=== PATIENT | male | born 1960 | race Caucasian/White ===

== ENCOUNTER 2017-02-10 16:56 | Inpatient (IN) | payer BC ==
[~2017-02-10] VITALS: Ht 190.5 cm; Wt 110.9 kg
[2017-02-10] MEDS ORDERED: METH54TA PO (17:24)
[2017-02-10] MEDS ORDERED: OLAN1CAP PO (17:26)
--- NOTE | 2017-02-10 18:48 | NUR ---
STATUS PT REPORTS X3 EMESIS IN PAST 24 HOURS AND 1 DIARRHEA STOOL. PT STATES "I ACTUALLY FELT A LOT BETTER ONCE I THREW UP." PT STATES THAT HE CONTINUES WITH NAUSEA.
--- NOTE | 2017-02-10 19:18 | ERPDOC ---
Departure Disposition Decision Date: Feb 10, 2017 Disposition Decision Time: 22:30 Disposition: 02 TO [facility] [place] [facility] Impression Impression Impression: Primary Impression: Acute pancreatitis Pancreatitis type: unspecified pancreatitis type Acute pancreatitis complication: unspecified Qualified Codes: K85.90 - Acute pancreatitis without necrosis or infection, unspecified Additional Impression: Neutrophilic leukocytosis Severity: Moderate Condition: Stable Seen By: Physician only Problems/Meds/Labs Reviewed?: Yes Medications reviewed and manag: Yes Follow up care ordered?: Yes Mental Status: Alert, Oriented HPI - Abdominal Pain General Chief Complaint: Nausea,Vomiting,Diarrhea Stated Complaint: N/V, RINGING IN EARS, HOT FLASHES Time Seen by Provider: 19:17 Source: patient History/Exam Limitations: no limitations HPI - Abdominal Pain Initial Comments Patient is a 56-year-old male presents emergency room for evaluation of nausea and vomiting, ringing in his ears, lashes/chills. Patient states that he is trying to get off of his antidepressant medications so he took some over-the- counter amino acids, approximately 45 minutes after taking the amino acids he started having some epigastric and upper abdominal pain with associated intractable nausea and vomiting with dry heaving is also had ringing in his ears , decided to come to the ER for evaluation Occurred At: home Onset: Rapid Duration: 1 hr Quality: sharpness Location: LLQ, epigastric Allergies: Coded Allergies: No Known Allergies (Unverified , 02/10/17) Past History Past Medical History Metabolic: hypothyroidism ENMT: sleep apnea Male: kidney stones Psychological: anxiety, depression Surgical History General: hernia (hiatalfundoplication), tonsils Social History Smoking Status: Never smoker Substance Use Type: does not use Alcohol Intake: other (couple beers every other day) Review of Systems Constitutional Constitutional: chills, DENIES: appetite decrease, dizziness, fever, weakness Eyes Vision: DENIES: double vision, loss of visual henriquez ENMT Sinuses: DENIES: congestion, rhinorrhea Cardiovascular Cardiac: DENIES: chest pain, dyspnea on exertion Pulmonary Respiratory: DENIES: cough, dyspnea, sputum, tachypnea GI Upper Abdomen: nausea, pain, vomiting Lower Abdomen: DENIES: constipation, diarrhea, pain General: DENIES: frequency, urgency Musculoskeletal General: DENIES: cramps, pain, weakness Integumentary Skin: DENIES: color change, itching, rash Endocrine Endocrine: DENIES: heat/cold intolerance Hematologic/Lymphatic Hematologic/Lymphatic: DENIES: anemia Physical Exam General General Nourishment: well nourished, well developed General Body Habitus: well groomed Vitals and Pain First Documented Vital Signs Date Time Temp Pulse Resp B/P Pulse Ox O2 Delivery O2 Flow Rate FiO2 02/10/17 17:16 98.0 82 132/87 97 Room Air 02/10/17 18:41 74 Weight: Kilograms: 115.000 Height (feet): 6 Height (inches): 3.00 Triage Pain Scale: RN VS reviewed by Provider: Yes Eyes (brief) Eyes Brief: found: EOMI, PERRL ENMT (brief) ENMT Brief: FOUND: mucosa moist, normal dentition, NOT FOUND: nasal erythema, pharnyx erythema, tonsillar deviation Neck (brief) Neck: NOT FOUND: adenopathy, spasm, tenderness Respiratory (brief) Respiratory: FOUND: clear all henriquez, equal bilaterally, NOT FOUND: rales, wheezes Cardiovascular (brief) Cardiac: FOUND: regular rate, regular rhythm Capillary Refill: <2 sec Abdomen (brief) Abdominal Brief: FOUND: bowel normo active x4, soft, tender (mild epigastric left upper quadrant tenderness no right upper quadrant tenderness or Gonzalez's) Lymphatic (brief) Lymphatic Brief: NOT FOUND: adenopathy Musculoskeletal (brief) Musculoskeletal Brief: NOT FOUND: spasm, tenderness Integumentary (brief) Integumentary Brief: FOUND: dry, pink, warm, NOT FOUND: rash Neurologic (brief) Neurological Brief: FOUND: CN w/o gross def to obs, motor-no gross deficits, sensory-no gross deficits Psychiatric (brief) Psychiatric Brief: FOUND: alert, oriented Differential Diagnoses Considering: Appendicitis, Biliary Colic, Cholecystitis, Dehydration, Diverticulitis, Food Poisoning, Gastroenteritis, Gastroparesis, Hyponatremia, Hypokalemia, Hypoglycemia, Pancreatitis, Pneumonia, Pyelonephritis, UTI, Sigmoid Volvulus, Cecal Volvulus Progress Results/Orders Orders Procedure Category Date Status Time Iv Lock (Ed Only) EDM 02/10/17 Transmitted 19:28 Cbc W/Auto LAB 02/10/17 Complete Diff-Reflex Manual 19:28 Cmp - Comprehensive LAB 02/10/17 Complete Metabolic 19:28 Lipase LAB 02/10/17 Complete 19:28 Troponin I W LAB 02/10/17 Complete Hemolysis Index 19:28 Normal Saline (Normal PHA 02/10/17 Complete Saline Iv) 19:30 Ondansetron Inj PHA 02/10/17 Complete (Zofran) 19:30 Ketorolac (Toradol) PHA 02/10/17 Complete 19:30 UA, LAB 02/10/17 Complete Dip&Micro(Complete) & 19:46 Ct Abd/Pelvis CT 02/10/17 Taken W/Contrast Only 20:50 Iohexol (Omnipaque) PHA 02/10/17 Complete 20:54 Normal Saline (Ns) PHA 02/10/17 Complete 20:54 Saline Flush (Iv PHA 02/10/17 Complete Flush) 20:55 Blood Culture ALFREDA 02/10/17 In Process 22:15 Piperacillin/Tazobactam PHA 02/10/17 Complete (Zosyn) 22:15 Lab Results Laboratory Tests Test 02/10/17 19:46 White Blood Count 17.7T/MM3 Red Blood Count 5.76M/MM3 Hemoglobin 18.0GM/DL Hematocrit 52.3% Mean Corpuscular Volume 90.8UM3 Mean Corpuscular Hemoglobin 31.3UUG Mean Corpuscular Hemoglobin Concent 34.4GM/DL RDW Standard Deviation 46.9FL Platelet Count 271T/MM3 Mean Platelet Volume 10.6UM3 Immature Granulocyte % (Auto) % Neutrophils (%) (Auto) % Lymphocytes (%) (Auto) % Monocytes (%) (Auto) % Eosinophils (%) (Auto) % Basophils (%) (Auto) % Absolute Immature Granulocyte (auto T/MM3 Absolute Neutrophils (auto) T/MM3 Absolute Lymphocytes (auto) T/MM3 Absolute Monocytes (auto) T/MM3 Absolute Eosinophils (auto) T/MM3 Absolute Basophils (auto) T/MM3 Neutrophils % (Manual) 93.0% Lymphocytes % (Manual) 4.0% Monocytes % (Manual) 2.0% Basophils % (Manual) 1.0% Absolute Neutrophils (Manual) 16.5T/MM3 Lymphocytes # (Manual) 0.7T/MM3 Monocytes # (Manual) 0.4T/MM3 Basophils # (Manual) 0.2T/MM3 Red Cell Morphology Comment Normal Urine Collection Type Voided-not cc-midstr Urine Color Yellow Urine Turbidity Clear Urine pH 6.5 Urine Specific [place] 1.020 Urine Protein Trace Urine Glucose (UA) Negative Urine Ketones 1+ Urine Blood 1+ Urine Nitrite Negative Urine Bilirubin 2+ Urine Urobilinogen 0.2EU/DL Urine Leukocyte Esterase Negative Urine RBC 1-3/HPF Urine WBC 1-3/HPF Urine Squamous Epithelial Cells 0-5 Urine Bacteria Trace Urine Mucus Present Urine Culture Indicated Cult not indicated Turbidity < 20 Sodium Level 144MEQ/L Potassium Level 4.4MEQ/L Chloride Level 108MEQ/L Carbon Dioxide Level 22MEQ/L Anion Gap 14MEQ/L Blood Urea Nitrogen 10.0MG/DL Creatinine 1.0MG/DL Glomerular Filtration Rate Calc 77 BUN/Creatinine Ratio 10RATIO Glucose Level 103MG/DL Calculated Osmolality 276MOSM/KG Calcium Level 9.5MG/DL Total Bilirubin 0.80MG/DL Icterus Index < 2 Aspartate Amino Transf (AST/SGOT) 33U/L Alanine Aminotransferase (ALT/SGPT) 43U/L Alkaline Phosphatase 109U/L Troponin I < 0.012ng/ml Total Protein 8.6G/DL Albumin 4.5G/DL Globulin 4.1G/DL Albumin/Globulin Ratio 1.1RATIO Lipase 1523U/L Chemistry Specimen Hemolysis < 15 Medications Current ED Medications Sodium Chloride (Normal Saline IV) 1,000 ml @ 999 mls/hr Q1H1M ONCE IV Last administered on 02/10/17 19:55; Start 02/10/17 at 19:30; Stop 02/10/17 at 20:30 ; Status DC Ondansetron HCl (Zofran) 4 mg O ONCE IV Last administered on 02/10/17 19:57; Start 02/10/17 at 19:30; Stop 02/10/17 at 19:31; Status DC Ketorolac Tromethamine (Toradol) 30 mg O ONCE IV Last administered on 20:00; Start 02/10/17 at 19:30; Stop 02/10/17 at 19:31; Status DC Iohexol 1 bottle 1 bottle STK-MED ONCE .ROUTE ; Start 02/10/17 at 20:54; Stop at 20:55; Status DC Sodium Chloride (NS) 100 ml @ As Directed STK-MED ONCE .ROUTE ; Start 02/10/17 at 20:54; Stop 02/10/17 at 20:55; Status DC Sodium Chloride 10 ml 10 ml STK-MED ONCE .ROUTE ; Start 02/10/17 at 20:55; Stop 02/10/17 at 20:56; Status DC Piperacillin Sod/ Tazobactam Sod 3.375 g/Sodium Chloride 100 ml @ 200 mls/hr O ONCE IV Last administered on 02/10/17 22:44; Start 02/10/17 at 22:15; Stop 02/10/17 at 22:44; Status DC Sodium Chloride (Normal Saline IV) 1,000 ml @ 125 mls/hr Q8H IV Last administered on 02/10/17 23:37; Start 02/10/17 at 22:26; Status UNV Progress Progress Patient with leukocytosis and bandemia we'll order a CT scan. CT scan of abdomen is noncontributory, patient has a lipase of 1583. Discuss case with Dr. Mckeon, hospitalist service he will admit him inpatient status, due to the leukocytosis and bandemia he would request blood culture start Zosyn CT CT : CT: Abd/Pelvis IV contrast Interpretation: Normal, Faxed Report PRANEETH CORREA MD Feb 10, 2017 19:18
[2017-02-10] MEDS ORDERED: ONDANSETRON 4mg/2ml INJECTION IV ONE (19:30)
[2017-02-10] MEDS ORDERED: KETOROLAC 30mg/ml INJECTION IV ONE (19:30)
[2017-02-10] MEDS ORDERED: NORMAL SALINE 1,000 ML IV ONE (19:30)
[2017-02-10 20:08] LABS: HCT - HEMATOCRIT 52.3 % (41-53); MEAN CORPUSCULAR HGB 31.3 UUG (26-34); MEAN CORPUSCULAR HGB CONC(MCHC 34.4 GM/DL (31-37); MEAN CORPUSCULAR VOLUME 90.8 UM3 (80-100); MEAN PLATELET VOLUME 10.6 UM3 (9.4-12.4); RED BLOOD COUNT 5.76 M/MM3 (4.50-5.90); WBC - WHITE BLOOD COUNT 17.7 T/MM3 (4.5-11.0)
[2017-02-10 20:12] LABS: BLOOD, URINE 1+ (NEGATIVE); COLOR,URINE YELLOW (YELLOW); LEUKOCYTE ESTERASE ,URINE NEGATIVE (NEGATIVE); NITRITE,URINE NEGATIVE (NEGATIVE); UROBILINOGEN,URINE 0.2 EU/DL (NORMAL)
[2017-02-10 20:17] LABS: ALBUMIN 4.5 G/DL (3.5-5.0); ALBUMIN/GLOBULIN RATIO 1.1 RATIO (1.1-2.2); ALKALINE PHOSPHATASE 109 U/L (38-126); ALT (SGPT) 43 U/L (21-72); ANION GAP 14 MEQ/L (5-15); AST (SGOT) 33 U/L (17-59); BUN/CREATININE RATIO 10 RATIO (6-26); CALCIUM 9.5 MG/DL (8.4-10.2); CHLORIDE 108 MEQ/L (98-107); CO2 - CARBON DIOXIDE 22 MEQ/L (22-30); GLOMERULAR FILTRATION RATE 77; GLUCOSE 103 MG/DL (75-110); LIPASE 1523 U/L (23-300); POTASSIUM 4.4 MEQ/L (3.6-5); SODIUM 144 MEQ/L (134-144); TOTAL PROTEIN 8.6 G/DL (6.3-8.2)
[2017-02-10 20:21] LABS: BACTERIA,URINE TRACE (NEGATIVE); MUCUS,URINE PRESENT; SQUAMOUS EPITHELIAL CELL,UR 0-5
[2017-02-10 20:25] LABS: BASOPHILS # (MANUAL) 0.2 T/MM3 (0-0.2); LYMPHOCYTES # (MANUAL) 0.7 T/MM3 (1-4.8); MONOCYTES # (MANUAL) 0.4 T/MM3 (0-0.8); NEUTROPHILS #(MANUAL)-ABSOLUTE 16.5 T/MM3 (1.8-7.7); TOTAL CELLS COUNTED 100 %
[2017-02-10] MEDS ORDERED: IOHEXOL 300 MG/ML 100ml INJECTION ONE (20:54)
[2017-02-10] MEDS ORDERED: NORMAL SALINE 100 ML ONE (20:54)
[2017-02-10] MEDS ORDERED: SALINE FLUSH 10ml SYRINGE ONE (20:55)
--- NOTE | 2017-02-10 20:55 | NUR ---
CT PT TO CT VIA [facility].
[2017-02-10] MEDS ORDERED: RIZA10TA26 PO (21:03)
[2017-02-10] MEDS ORDERED: CYCL-375 PO (21:03)
[2017-02-10] MEDS ORDERED: IBUP-1547 PO (21:03)
[2017-02-10] MEDS ORDERED: ASPI1TAB7 PO (21:03)
[2017-02-10] MEDS ORDERED: HYDR-3989 PO (21:03)
[2017-02-10] MEDS ORDERED: DRON10CA2 PO (21:03)
[2017-02-10] MEDS ORDERED: TRAM50TA4 PO (21:03)
[2017-02-10] MEDS ORDERED: TYRO500C2 PO (21:04)
[2017-02-10] MEDS ORDERED: OXIT5POW PO (21:06)
--- NOTE | 2017-02-10 21:10 | NUR ---
CT PT RETURNED.
[2017-02-10] MEDS ORDERED: PIPERACILLIN/TAZOBACTAM 3.375 G in NORMAL SALINE 100 ML IV ONE (22:15)
--- NOTE | 2017-02-10 22:16 | NUR ---
LAB NOTIFIED OF NEED FOR BLOOD CX DRAW.
--- NOTE | 2017-02-10 22:16 | NUR ---
DR DR CORREA AT BEDSIDE.
--- NOTE | 2017-02-10 22:18 | HPPDOC ---
CARLOS A BEDOLLA MD 02/10/17 2213: HPI - Adult Date DATE: 02/10/17 TIME: 22:07 General History of Present Illness This is a 56y/o male with history of anxiety, depression, back pain, GERD and migraine HAs who presents to ER at [facility] [place] w/ chief concern of n/v/d & abdominal pain x past 12-24 hours and some malaise. Patient reports mild abdominal tenderness in LUQ which has improved with morphine IV Patient apparently took some OTC L-Tyrosine and OTC 5HTP(hydroxytryptophan) approximately one hour prior to the onset of symptoms. He states that he had run out of his Symbiax yesterday and read online that he could take these two OTC supplements in lieu of the Symbiax. He also reports that he drinks approximately 3 beers every day and has so recently, however states prior to that it was more like 2 beers every other day. He denies drinking anything other than beer and states 3 is the most he will drink in one day d/t EtOH triggering his migraines if he drinks more than that. He also takes Excedrin Migraine BID and recently took 800mg ibuprofen TID for back pain (he stopped the ibuprofen about a week ago). Patient reported having some sweats and feeling "hot" today. Patient denies cough, shortness of breath, dyspnea and denies dysphagia, hematemesis and did have a "mild migraine" JALLOH. Patient denies fevers. In ER his lipase was noted to be 1581 and he had a WBC of 17.7 w/ 93% Neutrophils; CT scan of abdomen and pelvis was per prelim report negative. O2 Sats 96% on RA and otherwise Vital signs reported as "stable" in ER. Patient to be admitted to the Hospitalist service for further evaluation and management. Patient currently is feeling better after MSO4. Denies abdominal pain and n/v at this time. Patient's PCP in [place], [place] Past Medical History Past Medical History Migraine HAs - takes Excedrin BID on most days Depression & Anxiety ADD GERD s/p fundoplication about 10 years ago BAck pain HLD - controlling w/ diet and exercise Current Medications Home Meds Reported Medications Oxitriptan (Hydroxytryptophan) 5 Gm Powder, 5 TAB PO O 02/10/17 Tyrosine (l-Tyrosine) 500 Mg Capsule, 500 MG PO DAILY 02/10/17 Aspirin/Acetaminophen/Caffeine (Excedrin Migraine Caplet) 1 Each Tablet, 1 TAB PO Q6H Y for PAIN 02/10/17 Ibuprofen (Ibuprofen) 800 Mg Tablet, 800 MG PO TID Y for PAIN 02/10/17 Hydrocodone/Apap ([place] 5-325 Tablet) 5-325 Tablet, 1 TAB PO Q8H Y for PAIN 02/10/17 Rizatriptan Benzoate (Rizatriptan) 10 Mg Tablet, 10 MG PO PRN Y for migraines 02/10/17 Tramadol HCl (Tramadol HCl) 50 Mg Tablet, 50 MG PO Q4HR Y for PAIN 02/10/17 Dronabinol (Dronabinol) 10 Mg Capsule, 10 MG PO DAILY 02/10/17 Cyclobenzaprine HCl (Cyclobenzaprine HCl) 10 Mg Tablet, 10 MG PO BID 02/10/17 Olanzapine/Fluoxetine HCl (Symbyax 12-50 mg Capsule) 1 Each Capsule, 1 TAB PO DAILY 02/10/17 Methylphenidate HCl (Concerta) 54 Mg Tab.er.24, 1 TAB PO DAILY 02/10/17 Allergies: Coded Allergies: No Known Allergies (Unverified , 02/10/17) Family History Family History: Brother w/ Celiac disease r/t [place]/CAD Social History Alcohol Intake: daily Current Occupational Status: employed Review of Systems All Other Systems All Other Systems: Reviewed (remainder of 10-point ROS Neg.) Physical Exam General General Nourishment: well nourished, well developed General Body Habitus: well groomed Vital Signs Vital Signs Date Time Temp Pulse Resp B/P Pulse Ox O2 Delivery O2 Flow Rate FiO2 02/10/17 21:14 89 16 149/80 96 Room Air 02/10/17 18:41 97.5 Height (Feet): 6 Height (Inches): 3.00 Telemetry Rhythm: Sinus Rhythm Eyes Brief: FOUND: EOMI, PERRL, NOT FOUND: scleral icterus Neck Brief: NOT FOUND: JVD, adenopathy, carotid bruits, nuchal rigidity Respiratory Brief: FOUND: clear all henriquez, equal bilaterally, symmetrical, NOT FOUND: rales, wheezes Cardiovascular (brief) Cardiac Brief: FOUND: regular rate, regular rhythm, NOT FOUND: pedal edema Abdomen (brief) Abdominal Brief: FOUND: BS normo active x4, soft, NOT FOUND: distended, tender Integumentary (brief) Integumentary Brief: FOUND: dry, pink, warm Neurologic (brief) Neurological Brief: FOUND: cranial 2-12 intact Neurologic RN Documented GCS Eye Opening: Verbal: Motor: Total: Psychiatric (brief) FOUND: alert, normal affect, oriented Laboratory Laboratory Tests Test 02/10/17 19:46 White Blood Count 17.7T/MM3 Red Blood Count 5.76M/MM3 Hemoglobin 18.0GM/DL Hematocrit 52.3% Mean Corpuscular Volume 90.8UM3 Mean Corpuscular Hemoglobin 31.3UUG Mean Corpuscular Hemoglobin Concent 34.4GM/DL RDW Standard Deviation 46.9FL Platelet Count 271T/MM3 Mean Platelet Volume 10.6UM3 Immature Granulocyte % (Auto) % Neutrophils (%) (Auto) % Lymphocytes (%) (Auto) % Monocytes (%) (Auto) % Eosinophils (%) (Auto) % Basophils (%) (Auto) % Absolute Immature Granulocyte (auto T/MM3 Absolute Neutrophils (auto) T/MM3 Absolute Lymphocytes (auto) T/MM3 Absolute Monocytes (auto) T/MM3 Absolute Eosinophils (auto) T/MM3 Absolute Basophils (auto) T/MM3 Neutrophils % (Manual) 93.0% Lymphocytes % (Manual) 4.0% Monocytes % (Manual) 2.0% Basophils % (Manual) 1.0% Absolute Neutrophils (Manual) 16.5T/MM3 Lymphocytes # (Manual) 0.7T/MM3 Monocytes # (Manual) 0.4T/MM3 Basophils # (Manual) 0.2T/MM3 Red Cell Morphology Comment Normal Urine Collection Type Voided-not cc-midstr Urine Color Yellow Urine Turbidity Clear Urine pH 6.5 Urine Specific [place] 1.020 Urine Protein Trace Urine Glucose (UA) Negative Urine Ketones 1+ Urine Blood 1+ Urine Nitrite Negative Urine Bilirubin 2+ Urine Urobilinogen 0.2EU/DL Urine Leukocyte Esterase Negative Urine RBC 1-3/HPF Urine WBC 1-3/HPF Urine Squamous Epithelial Cells 0-5 Urine Bacteria Trace Urine Mucus Present Urine Culture Indicated Cult not indicated Turbidity < 20 Sodium Level 144MEQ/L Potassium Level 4.4MEQ/L Chloride Level 108MEQ/L Carbon Dioxide Level 22MEQ/L Anion Gap 14MEQ/L Blood Urea Nitrogen 10.0MG/DL Creatinine 1.0MG/DL Glomerular Filtration Rate Calc 77 BUN/Creatinine Ratio 10RATIO Glucose Level 103MG/DL Calculated Osmolality 276MOSM/KG Calcium Level 9.5MG/DL Total Bilirubin 0.80MG/DL Icterus Index < 2 Aspartate Amino Transf (AST/SGOT) 33U/L Alanine Aminotransferase (ALT/SGPT) 43U/L Alkaline Phosphatase 109U/L Troponin I < 0.012ng/ml Total Protein 8.6G/DL Albumin 4.5G/DL Globulin 4.1G/DL Albumin/Globulin Ratio 1.1RATIO Lipase 1523U/L Chemistry Specimen Hemolysis < 15 Assessment & Plan Assessment 1) Acute Pancreatitis POA - etiology unclear - recently started on new med - Hydroxycut recently 2) Acute Leukocytosis POA 3) Acute N/V/D and Abdominal Pain 4) Acute Dehydration POA 5) Migraine HAs 6) Depression & Anxiety 7) HLD - had been prescribed a statin agent but does not take it 8) GERD s/p fundoplication 10 years ago or more 9) Back Pain Plan/Intensity of Service Admit to Hospitalist service - inpatient Blood cultures x 2 Zosyn 3.375g IV q 6 hours empiric treatment IVFs that of NS TRA 125cc/hour Consider US GB and Liver in AM NPO Labs in AM including repeat Lipase Prn Zofran for n/v Prn MSO4 prn for pain Telemetry Hold home meds for now except will have pharmacy sub for Symbiax as patient states he does not do well when he goes too long w/o it Ativan 0.5mg IV q 6 hours prn Protonix 40mg IV q 24 hours Discussed alcohol cessation - patient denies tremors or any w/d issues in the past Fasting lipid profile in AM D/c OTC supplements that of L-tyrosine and hydroxytryptophan DVT Prophylaxis: SCD'S Code Status Hospital Course Summary Disclaimer The hospital course summary below is not to be considered part of the above Progress Note. MARION MEJIA MD 02/11/17 6383: Past Medical History Current Medications Home Meds Reported Medications Oxitriptan (Hydroxytryptophan) 5 Gm Powder, 5 TAB PO O 02/10/17 Tyrosine (l-Tyrosine) 500 Mg Capsule, 500 MG PO DAILY 02/10/17 Aspirin/Acetaminophen/Caffeine (Excedrin Migraine Caplet) 1 Each Tablet, 1 TAB PO Q6H Y for PAIN 02/10/17 Ibuprofen (Ibuprofen) 800 Mg Tablet, 800 MG PO TID Y for PAIN 02/10/17 Hydrocodone/Apap ([place] 5-325 Tablet) 5-325 Tablet, 1 TAB PO Q8H Y for PAIN 02/10/17 Rizatriptan Benzoate (Rizatriptan) 10 Mg Tablet, 10 MG PO PRN Y for migraines 02/10/17 Tramadol HCl (Tramadol HCl) 50 Mg Tablet, 50 MG PO Q4HR Y for PAIN 02/10/17 Dronabinol (Dronabinol) 10 Mg Capsule, 10 MG PO DAILY 02/10/17 Cyclobenzaprine HCl (Cyclobenzaprine HCl) 10 Mg Tablet, 10 MG PO BID 02/10/17 Olanzapine/Fluoxetine HCl (Symbyax 12-50 mg Capsule) 1 Each Capsule, 1 TAB PO DAILY 02/10/17 Methylphenidate HCl (Concerta) 54 Mg Tab.er.24, 1 TAB PO DAILY 02/10/17 Allergies: Coded Allergies: No Known Allergies (Unverified , 02/10/17) Assessment & Plan Plan/Intensity of Service Have independently interviewed and examined pt. Chart reviewed. Above note reviewed and concur. CC: Ab pain, N/V. HPI: 56 y/o WM presents to [facility] secondary to acute onset of ab pain with nausea and dry heaves (emesis in ED). Notes appetite decreased for the past several months, more decrease over past 2 day. Took amino acid supplements and about 45 minutes later developed severe ab pain-diffuse, but more epigastric. Pain did radiate to back. Never had pain this severe before. Very nauseated with the pain -multiple episodes of dry heaves. Some chills with pain. No recent trauma. Did have some loose stools. Rarely uses ETOH - last use was on 02/07 when he had 3 beers. Seen in ED for evaluation. WBC with elevation. Lipase elevated. CT without pathology. Admitted for treatment of pancreatitis. PMHx, meds and allergies reviewed and concur SHx: no smoke. Rare ETOH use - last 02/07 (3 beers) FHx: Brother had celiac disease. Mother had Tb. Father due to brain tumor ROS: as above with: Gen: Typical health until acute onset of symptoms. HEENT: Migraine on the . Vision stable. Chronic buzzing to ears did increase. CV: no chest pressure or palpitations. Pulm: No increase cough, congestion or SOA. : decreased urinary stream - not acute change; no pain with urination. Remainder of 10 point ROS negative. Exam GEN: [id number] alert and oriented HEENT: NC/AT PERRLA EOMI MMM Neck: midline, supple Lungs: clear bilaterally, no crackles/wheezes/distress CV: regular rate and Rhythm AB: soft obese ND, mild tenderness. BS decreased but present EXT: no LE edema SCD present; Neuro: CN II-XII intact. No focal motor deficits Psych: awake alert appropriate SKIN: warm and dry Lab: Reviewed Imaging: reviewed Assessment: as above Plan: Admit orders as outlined above. 02/11 Pain improving. Morphine helping-seeing better and longer lasting pain relief. Nausea resolve. Passing slight amounts of flatus. Appetite increasing. Breathing well. No f/c. WBC normalized. Lipase decreasing Will check US GB due to pancreatitis to exclude stones. Lipid profile pending. Decrease IVF to 75 cc/hr. Encourage increase activities. Continue NPO status - possible advance to clears if Sono normal. Did advise caution with po intake (watch for increased pain/nausea). Recheck CMP, Mg and lipase in am due to pancreatitis Repeat CBC in am due to resolving leukocytosis. Hospital Course Summary Hospital Course Summary 02/10 Admit to Hospitalist service - inpatient Blood cultures x 2 Zosyn 3.375g IV q 6 hours empiric treatment IVFs that of NS TRA 125cc/hour Consider US GB and Liver in AM NPO Labs in AM including repeat Lipase Prn Zofran for n/v Prn MSO4 prn for pain Telemetry Hold home meds for now except will have pharmacy sub for Symbiax as patient states he does not do well when he goes too long w/o it Ativan 0.5mg IV q 6 hours prn Protonix 40mg IV q 24 hours Discussed alcohol cessation - patient denies tremors or any w/d issues in the past Fasting lipid profile in AM D/c OTC supplements that of L-tyrosine and hydroxytryptophan 02/11 Pain improving. Morphine helping-seeing better and longer lasting pain relief. Nausea resolve. Passing slight amounts of flatus. Appetite increasing. Breathing well. No f/c. WBC normalized. Lipase decreasing Will check US GB due to pancreatitis to exclude stones. Lipid profile pending. Decrease IVF to 75 cc/hr. Encourage increase activities. Continue NPO status - possible advance to clears if Sono normal. Did advise caution with po intake (watch for increased pain/nausea). Recheck CMP, Mg and lipase in am due to pancreatitis Repeat CBC in am due to resolving leukocytosis. CARLOS A BEDOLLA MD Feb 10, 2017 22:13 MARION MEJIA MD Feb 11, 2017 13:07
[2017-02-10] MEDS ORDERED: ONDANSETRON 4mg/2ml INJECTION IV PRN (22:30)
--- NOTE | 2017-02-10 22:31 | NUR ---
LAB COMPLETED BLOOD CX DRAW.
--- NOTE | 2017-02-10 23:05 | NUR ---
REPORT CALLED TO [facility].
--- NOTE | 2017-02-10 23:12 | NUR ---
ADMIT PT TRANSFERRED TO MEDICAL UNIT VIA , [employer].
[2017-02-10 23:30] VITALS: BP 156/91; PULSE 68; RESP 16; TEMP 98; O2SAT 95
[2017-02-10] MEDS: MORPHINE SULFATE 2 MG SYRINGE IV PRN (23:37)
[2017-02-10] MEDS: NORMAL SALINE 1,000 ML IV SCH (23:37)
[2017-02-10 23:40] VITALS: Ht 190.5 cm; Wt 110.9 kg
[2017-02-11] MEDS: LORAZEPAM 2 MG/ML INJECTION IV PRN ×3 (00:57→16:00)
[2017-02-11] MEDS: PANTOPRAZOLE 40mg INJECTION IV SCH (01:02)
[2017-02-11] MEDS: MORPHINE SULFATE 2 MG SYRINGE IV PRN (02:36)
[2017-02-11] MEDS: PIPERACILLIN/TAZOBACTAM 3.375 G in NORMAL SALINE 100 ML IV SCH ×4 (03:03→21:16)
[2017-02-11 04:11] VITALS: PULSE 68; RESP 16
--- NOTE | 2017-02-11 05:46 | NUR ---
Summary Bryant is a pleasant and cooperative patient. He was able to remember a few more details about is medications . # 1 Testosterone shots however could not remember the dose.He was giving his own shots. 2nd was Dronabinal daily these both were reported to Dr Mckeon via [facility] text.He had SCD's to bilateral lower extremities.He is alert and oriented x three.VSS . bp was elevated 156/91. He reported pain was medicated with IV MS with adequate pain relief.His IV is with continuous fluids ,intact and patent.Continent with use of urinal.He was anxious and was medicated with Ativan IV with decreased anxiety.He is NPO with occ. ice chips.
[2017-02-11 06:40] LABS: BASOPHILS % (AUTO) 0.4 % (0-2); EOSINOPHILS # (AUTO) 0.1 T/MM3 (0-0.5); HCT - HEMATOCRIT 46.9 % (41-53); HGB - HEMOGLOBIN 15.5 GM/DL (13.5-17.5); IMMATURE GRANULOCYTE # (AUTO) 0.02 T/MM3 (0.00-0.03); IMMATURE GRANULOCYTE % (AUTO) 0.2 % (0.0-0.5); LYMPHOCYTES # (AUTO) 1.7 T/MM3 (1-4.8); LYMPHOCYTES % (AUTO) 15.6 % (23-45); MEAN CORPUSCULAR HGB 30.8 UUG (26-34); MEAN CORPUSCULAR VOLUME 93.1 UM3 (80-100); MEAN PLATELET VOLUME 10.1 UM3 (9.4-12.4); MONOCYTES # (AUTO) 0.9 T/MM3 (0-0.8); MONOCYTES % (AUTO) 8.1 % (0-9.0); NEUTROPHILS % (AUTO) 74.7 % (33-66); RED BLOOD COUNT 5.04 M/MM3 (4.50-5.90); WBC - WHITE BLOOD COUNT 10.7 T/MM3 (4.5-11.0)
[2017-02-11 06:53] LABS: ALBUMIN 3.4 G/DL (3.5-5.0); ALBUMIN/GLOBULIN RATIO 1.1 RATIO (1.1-2.2); ALKALINE PHOSPHATASE 75 U/L (38-126); ALT (SGPT) 35 U/L (21-72); ANION GAP 8 MEQ/L (5-15); AST (SGOT) 23 U/L (17-59); BUN/CREATININE RATIO 10 RATIO (6-26); CHLORIDE 110 MEQ/L (98-107); CO2 - CARBON DIOXIDE 26 MEQ/L (22-30); CREATININE 1.1 MG/DL (0.8-1.5); GLOMERULAR FILTRATION RATE 69; GLUCOSE 93 MG/DL (75-110); MAGNESIUM 2.2 MG/DL (1.6-2.3); POTASSIUM 4.3 MEQ/L (3.6-5); SODIUM 144 MEQ/L (134-144); TOTAL PROTEIN 6.5 G/DL (6.3-8.2)
--- NOTE | 2017-02-11 07:48 | NUR ---
Supplement This am Bryant asked if I could call a work friend of his and his sister and to give them both information concerning his admission. This was done and he was pleased . He seemed more relaxed and at ease.
[2017-02-11 08:00] VITALS: BP 135/84; PULSE 68; RESP 14; TEMP 96.8; O2SAT 95
--- NOTE | 2017-02-11 08:00 | DI ---
Indication: ITS.REASON: 56-year-old male with abdominal pain, elevated lipase PROCEDURE: CT ABD/PELVIS W/CONTRAST ONLY: Encounter: Initial Comparison: None Technique: Axial CT images were performed through the abdomen and pelvis after the administration of intravenous contrast. Coronal and sagittal two-dimensional reformats. Automated Exposure Control and Iterative Reconstruction dose reducing techniques were utilized. Contrast: Omnipaque 300 100 mL Findings: The lung bases are clear. There is mild fatty infiltration of liver and a couple small subcentimeter hepatic cysts. Spleen, adrenal glands, and pancreas are unremarkable. The gallbladder appears normal. The kidneys appear to have normal nephrographic density but there are a few small scattered renal cysts but no solid renal masses. Great vessels unremarkable. In terms of the bowel, there are fluid-filled loops of small bowel as well as colon. No paracolonic inflammatory changes. No free air, free fluid, or adenopathy. No inflammatory changes about the various bowel loops or solid visceral structures. Nonvisualization of the appendix. Reproductive viscera are unremarkable. Small fat-containing left inguinal hernia without entrapped bowel loops. Osseous elements demonstrates degenerative changes at L5-S1 where there is mild retrolisthesis. No osseous destructive lesions. Impression: Negative for significant acute inflammatory process. Minimal incidental findings as described above. .
[2017-02-11] MEDS: NORMAL SALINE 1,000 ML IV SCH ×2 (08:39→16:01)
[2017-02-11] MEDS ORDERED: OLANZAPINE PO SCH (09:00)
[2017-02-11] MEDS ORDERED: FLUOXETINE HCL PO SCH (09:00)
[2017-02-11] MEDS: FLUOXETINE 20 MG CAPSULE PO SCH (09:15)
[2017-02-11] MEDS: FLUOXETINE 10 MG PO SCH (09:15)
[2017-02-11] MEDS: OLANZAPINE 10 MG, OLANZAPINE 2.5 MG PO SCH ×2 (09:16)
[2017-02-11 11:51] VITALS: BP 102/62; PULSE 71; RESP 14; TEMP 97.6; O2SAT 96
--- NOTE | 2017-02-11 13:24 | NUR ---
CM CM VISITED PT ROLE EXPLAINED, CONTACT INFORMATION GIVEN. PT PLANS TO RETURN HOME AT TIME OF DC. PT DENIES NEEDS AT THIS TIME. PT AWARE TO CALL CM IF NEEDS ARISE. Addendum: 02/11/17 at 1326 by BYRON DE JESUS RN Amended: Links added.
--- NOTE | 2017-02-11 13:52 | DI ---
Indication: ITS.REASON: Pancreatitis PROCEDURE: US GALLBLADDER: Encounter: Initial Comparison: None Technique: Grayscale and color Doppler sonographic imaging of the right upper quadrant of the abdomen was performed. Findings: Increased echogenicity of the liver consistent with fatty infiltration. The gallbladder is normal. There is no wall thickening, pericholecystic fluid, sonographic Gonzalez's sign or cholelithiasis. Both the intra and extrahepatic biliary system are of normal caliber with the common duct measuring 4.7 mm in dimension. The pancreas is poorly visualized due to overlying bowel gas.. The right kidney is present without collecting system dilatation. The right kidney measures 11.8 cm in length. Impression: 1. Negative for cholelithiasis or biliary ductal dilatation. 2. Diffuse fatty infiltration of liver. 3. Poor visualization of the pancreas. .
[2017-02-11 16:00] VITALS: BP 133/88; PULSE 66; RESP 18; TEMP 97.3; O2SAT 96
[2017-02-11 19:34] VITALS: BP 140/87; PULSE 66; RESP 18; TEMP 97.8; O2SAT 95
--- NOTE | 2017-02-11 19:59 | NUR ---
Shift summary Patient NPO this shift. Denies abdominal pain. IV NS running at 75 cc/hr in left hand. Telemetry running sinus rhythm. Up in room ad dee.
[2017-02-11 20:00] VITALS: PULSE 66; RESP 18
[2017-02-12] VITALS (7 sets, daily range): BP systolic 128–150; BP diastolic 70–86; PULSE 62–72; RESP 16–20; TEMP 97.5–98.7; O2SAT 93–96
[2017-02-12] MEDS: NORMAL SALINE 1,000 ML IV SCH ×2 (02:20→06:32)
[2017-02-12] MEDS: PIPERACILLIN/TAZOBACTAM 3.375 G in NORMAL SALINE 100 ML IV SCH ×3 (02:52→14:33)
[2017-02-12 03:16] LABS: LDL CHOLESTEROL,CALCULATED 139.2 (66-159); VLDL CHOLESTEROL 22.8 MG/DL (0-28)
[2017-02-12] MEDS: MORPHINE SULFATE 2 MG SYRINGE IV PRN ×2 (04:58→18:07)
[2017-02-12 05:38] LABS: BASOPHILS # (AUTO) 0.1 T/MM3 (0-0.2); BASOPHILS % (AUTO) 0.6 % (0-2); EOSINOPHILS # (AUTO) 0.2 T/MM3 (0-0.5); EOSINOPHILS % (AUTO) 2.2 % (0-4); HCT - HEMATOCRIT 44.5 % (41-53); HGB - HEMOGLOBIN 14.7 GM/DL (13.5-17.5); IMMATURE GRANULOCYTE # (AUTO) 0.02 T/MM3 (0.00-0.03); IMMATURE GRANULOCYTE % (AUTO) 0.2 % (0.0-0.5); LYMPHOCYTES # (AUTO) 1.4 T/MM3 (1-4.8); LYMPHOCYTES % (AUTO) 16.6 % (23-45); MEAN CORPUSCULAR HGB 30.8 UUG (26-34); MEAN CORPUSCULAR VOLUME 93.3 UM3 (80-100); MEAN PLATELET VOLUME 10.4 UM3 (9.4-12.4); MONOCYTES # (AUTO) 0.7 T/MM3 (0-0.8); MONOCYTES % (AUTO) 7.5 % (0-9.0); NEUTROPHILS #(AUTO)-ABSOLUTE 6.3 T/MM3 (1.8-7.7); NEUTROPHILS % (AUTO) 72.9 % (33-66); RED BLOOD COUNT 4.77 M/MM3 (4.50-5.90); WBC - WHITE BLOOD COUNT 8.6 T/MM3 (4.5-11.0)
[2017-02-12 05:46] LABS: ALBUMIN 3.3 G/DL (3.5-5.0); ALBUMIN/GLOBULIN RATIO 1.1 RATIO (1.1-2.2); ALKALINE PHOSPHATASE 68 U/L (38-126); ALT (SGPT) 32 U/L (21-72); ANION GAP 10 MEQ/L (5-15); AST (SGOT) 22 U/L (17-59); BUN/CREATININE RATIO 9 RATIO (6-26); CHLORIDE 109 MEQ/L (98-107); CO2 - CARBON DIOXIDE 24 MEQ/L (22-30); CREATININE 1.1 MG/DL (0.8-1.5); GLOMERULAR FILTRATION RATE 69; GLUCOSE 72 MG/DL (75-110); LIPASE 218 U/L (23-300); MAGNESIUM 2.1 MG/DL (1.6-2.3); POTASSIUM 4.1 MEQ/L (3.6-5); SODIUM 143 MEQ/L (134-144); TOTAL PROTEIN 6.3 G/DL (6.3-8.2)
--- NOTE | 2017-02-12 08:00 | NUR ---
Received report Patient is alert and oriented. Denies abdominal pain at this time. Lab from this morning is all normal. NS at 75ml/hr per Lt. Hand PIV. SCDs to Abdi Legs.
[2017-02-12] MEDS: PANTOPRAZOLE 40mg INJECTION IV SCH (09:02)
[2017-02-12] MEDS: FLUOXETINE 10 MG PO SCH (09:08)
[2017-02-12] MEDS: FLUOXETINE 20 MG CAPSULE PO SCH (09:11)
[2017-02-12] MEDS: OLANZAPINE 10 MG, OLANZAPINE 2.5 MG PO SCH ×2 (09:13)
[2017-02-12] MEDS ORDERED: ACETAMINOPHEN 325 MG TABLET PO PRN (14:30)
--- NOTE | 2017-02-12 14:30 | NUR ---
Clear Liquid diet. Patient says he is hungry. Clear liquid diet is stated. Diet to be advanced as patient tolerates well.
--- NOTE | 2017-02-12 15:20 | PNPDOC ---
Subjective Date DATE: 02/12/17 TIME: 15:10 Subjective The patient complaints of a headache and states it feels like a migraine. At home he typically takes Excedrin Migraine frequently. He also drinks caffeinated coffee on a regular basis and has been nothing by mouth here. He states his abdominal pain is gone. He has no nausea and feels hungry. He denies shortness of breath or chest pain. He states he is urinating without difficulties. He has not had any diarrhea since admission. He has not felt feverish. He states that the pharmacy that he usually goes to read out of his Symbiax and that they had to reorder it. His primary care physician has been prescribing this. Previously he was seeing a psychiatrist at [place] but then moved out of the area and now has moved back. The patient also states that he drinks 3 beers a day approximately 3 or 4 days a week. His last drink was 3 days prior to admission. He wants to quit drinking completely. He also states that he takes testosterone shots twice weekly prescribed by an antiaging doctor. Objective Vital Signs Vital signs Vital Signs Date Time Temp Pulse Resp B/P Pulse Ox O2 Delivery O2 Flow Rate FiO2 02/12/17 11:16 98.1 67 17 129/76 96 Room Air GEN-alert, oriented 3, no acute distress HEENT-sclera anicteric, oropharynx is moist NECK-supple CV-regular rate and rhythm CHEST-clear to auscultation bilaterally ABD-soft, nontender, obese, nondistended, normal bowel sounds -no Esquivel EXT-no edema, SCDs are on NEURO-no focal deficits, no tremulousness SKIN-warm and dry and without rashes Telemetry Rhythm: Sinus Rhythm Height (Feet): 6 Height (Inches): 3.00 Weight (Kilograms): 112.300 Laboratory Laboratory Laboratory Tests 02/10/17 19:46 02/11/17 06:34 02/12/17 05:06 Laboratory Tests 02/10/17 19:46 02/11/17 06:34 02/12/17 05:06 Lipase has normalized at 218 Triglycerides are normal at 114 LDL is 139 HDL is low at 27 Total cholesterol is 189 Cholesterol/HDL ratio is high at 7.0 Microbiology Microbiology Microbiology Date/Time Source Procedure Growth Status 02/10/17 22:31 Peripheral/Iv Start Blood Culture - Preliminary NO GROWTH AFTER 24 HOURS Resulted 3/26/17 22:31 Peripheral/Iv Start Blood Culture - Preliminary NO GROWTH AFTER 24 HOURS Resulted Radiology Gallbladder sonogram yesterday showed no cholelithiasis or biliary ductal dilatation. Diffuse fatty infiltration of the liver was seen. Assessment & Plan Assessment 1) Acute Pancreatitis POA - etiology unclear - recently started on new med - Hydroxycut recently -lipase is normal on 02/12/2017 2) Acute Leukocytosis POA-resolved, unclear etiology, likely secondary to stress of pancreatitis 3) Acute N/V/D and Abdominal Pain-resolved 4) Acute Dehydration POA-resolved 5) Migraine HAs-patient with headache on 02/12/2017 likely secondary to caffeine withdrawal 6) Depression & Anxiety 7) HLD - had been prescribed a statin agent but does not take it 8) GERD s/p fundoplication 10 years ago or more 9) Back Pain 10) diffuse fatty infiltration of the liver 11) chronic testosterone use 12) diarrhea-none since admission Plan Start clear liquids and advance diet as tolerated DC IV fluids when taking by mouth well Discontinue Zosyn, I do not think his nausea vomiting and diarrhea with elevated white count was likely infectious Encourage alcohol cessation-he was drinking approximately 12 beers a week which may have contributed to pancreatitis Possible discharge tomorrow if doing well Discussed with patient's nurse There is an 35 minutes of time spent seeing and evaluating the patient, reviewing chart, and determining care plan Plan/Intensity of Service Have independently interviewed and examined pt. Chart reviewed. Above note reviewed and concur. CC: Ab pain, N/V. HPI: 56 y/o WM [place] [facility] to acute onset of ab pain with nausea and dry heaves (emesis in ED). Notes appetite decreased for the past several months, more decrease over past 2 day. Took amino acid supplements and about 45 minutes later developed severe ab pain-diffuse, but more epigastric. Pain did radiate to back. Never had pain this severe before. Very nauseated with the pain -multiple episodes of dry heaves. Some chills with pain. No recent trauma. Did have some loose stools. Rarely uses ETOH - last use was on 02/07 when he had 3 beers. Seen in ED for evaluation. WBC with elevation. Lipase elevated. CT without pathology. Admitted for treatment of pancreatitis. PMHx, meds and allergies reviewed and concur SHx: no smoke. Rare ETOH use - last 02/07 (3 beers) FHx: Brother had celiac disease. Mother had Tb. Father due to brain tumor ROS: as above with: Gen: Typical health until acute onset of symptoms. HEENT: Migraine on the . Vision stable. Chronic buzzing to ears did increase. CV: no chest pressure or palpitations. Pulm: No increase cough, congestion or SOA. : decreased urinary stream - not acute change; no pain with urination. Remainder of 10 point ROS negative. Exam GEN: WDWNWM alert and oriented HEENT: NC/AT PERRLA EOMI MMM Neck: midline, supple Lungs: clear bilaterally, no crackles/wheezes/distress CV: regular rate and Rhythm AB: soft obese ND, mild tenderness. BS decreased but present EXT: no LE edema SCD present; Neuro: CN II-XII intact. No focal motor deficits Psych: awake alert appropriate SKIN: warm and dry Lab: Reviewed Imaging: reviewed Assessment: as above Plan: Admit orders as outlined above. 02/11 Pain improving. Morphine helping-seeing better and longer lasting pain relief. Nausea resolve. Passing slight amounts of flatus. Appetite increasing. Breathing well. No f/c. WBC normalized. Lipase decreasing Will check US GB due to pancreatitis to exclude stones. Lipid profile pending. Decrease IVF to 75 cc/hr. Encourage increase activities. Continue NPO status - possible advance to clears if Sono normal. Did advise caution with po intake (watch for increased pain/nausea). Recheck CMP, Mg and lipase in am due to pancreatitis Repeat CBC in am due to resolving leukocytosis. Code Status Full Code Hospital Course Summary Disclaimer The hospital course summary below is not to be considered part of the above Progress Note. Hospital Course Summary 02/10 Admit to Hospitalist service - inpatient Blood cultures x 2 Zosyn 3.375g IV q 6 hours empiric treatment IVFs that of NS TRA 125cc/hour Consider US GB and Liver in AM NPO Labs in AM including repeat Lipase Prn Zofran for n/v Prn MSO4 prn for pain Telemetry Hold home meds for now except will have pharmacy sub for Symbiax as patient states he does not do well when he goes too long w/o it Ativan 0.5mg IV q 6 hours prn Protonix 40mg IV q 24 hours Discussed alcohol cessation - patient denies tremors or any w/d issues in the past Fasting lipid profile in AM D/c OTC supplements that of L-tyrosine and hydroxytryptophan 02/11 Pain improving. Morphine helping-seeing better and longer lasting pain relief. Nausea resolve. Passing slight amounts of flatus. Appetite increasing. Breathing well. No f/c. WBC normalized. Lipase decreasing Will check US GB due to pancreatitis to exclude stones. Lipid profile pending. Decrease IVF to 75 cc/hr. Encourage increase activities. Continue NPO status - possible advance to clears if Sono normal. Did advise caution with po intake (watch for increased pain/nausea). Recheck CMP, Mg and lipase in am due to pancreatitis Repeat CBC in am due to resolving leukocytosis. STEFANIE CASILLAS MD Feb 12, 2017 15:13
--- NOTE | 2017-02-12 18:55 | NUR ---
EOS Patient has had two clear liquid diet this after noon. Patient diet is advanced to soft. Patient will start soft diet for breakfast. Patient continues NS@75m/hr. Verbalizes JALLOH relief. Report given to oncoming nurse.
[2017-02-12] MEDS: LORAZEPAM 2 MG/ML INJECTION IV PRN (22:19)
[2017-02-13 02:58] VITALS: PULSE 62; RESP 16
[2017-02-13 04:49] VITALS: BP 134/84; PULSE 57; RESP 16; TEMP 97.7; O2SAT 94
--- NOTE | 2017-02-13 04:59 | NUR ---
summary pt remains on room air. vss. up ad dee. adequate urine output. rested well throughout night. no concerns.
[2017-02-13 05:27] LABS: BASOPHILS % (AUTO) 0.7 % (0-2); EOSINOPHILS # (AUTO) 0.3 T/MM3 (0-0.5); EOSINOPHILS % (AUTO) 5.5 % (0-4); HCT - HEMATOCRIT 43.5 % (41-53); IMMATURE GRANULOCYTE # (AUTO) 0.03 T/MM3 (0.00-0.03); IMMATURE GRANULOCYTE % (AUTO) 0.5 % (0.0-0.5); LYMPHOCYTES # (AUTO) 1.4 T/MM3 (1-4.8); LYMPHOCYTES % (AUTO) 24.9 % (23-45); MEAN CORPUSCULAR HGB 31.6 UUG (26-34); MEAN CORPUSCULAR HGB CONC(MCHC 34.5 GM/DL (31-37); MEAN CORPUSCULAR VOLUME 91.8 UM3 (80-100); MEAN PLATELET VOLUME 10.5 UM3 (9.4-12.4); MONOCYTES # (AUTO) 0.6 T/MM3 (0-0.8); MONOCYTES % (AUTO) 10.5 % (0-9.0); NEUTROPHILS #(AUTO)-ABSOLUTE 3.4 T/MM3 (1.8-7.7); NEUTROPHILS % (AUTO) 57.9 % (33-66); RED BLOOD COUNT 4.74 M/MM3 (4.50-5.90); WBC - WHITE BLOOD COUNT 5.8 T/MM3 (4.5-11.0)
[2017-02-13 05:39] LABS: ANION GAP 8 MEQ/L (5-15); BUN/CREATININE RATIO 7 RATIO (6-26); CALCIUM 8.3 MG/DL (8.4-10.2); CHLORIDE 107 MEQ/L (98-107); CO2 - CARBON DIOXIDE 25 MEQ/L (22-30); GLOMERULAR FILTRATION RATE 77; GLUCOSE 83 MG/DL (75-110); POTASSIUM 3.7 MEQ/L (3.6-5); SODIUM 140 MEQ/L (134-144)
[2017-02-13 08:00] VITALS: BP 137/86; PULSE 58; RESP 16; TEMP 97.4; O2SAT 96
--- NOTE | 2017-02-13 08:00 | NUR ---
REPORT RECEIVED PATIENT IS ALERT AND ORIENTED. LEFT HAND SALINE LOCK. DENIES HEADACHE. PT IS YET TO START SOFT DIET THIS MORNING. SCD TO LATERAL LEGS. NO DISCOMFORT TO ABDOMEN REPORTED. RA. VSS.
[2017-02-13] MEDS: FLUOXETINE 20 MG CAPSULE PO SCH (08:58)
[2017-02-13] MEDS: FLUOXETINE 10 MG PO SCH (08:59)
[2017-02-13] MEDS: OLANZAPINE 10 MG, OLANZAPINE 2.5 MG PO SCH ×2 (08:59)
[2017-02-13] MEDS: PANTOPRAZOLE 40mg INJECTION IV SCH (09:01)
--- NOTE | 2017-02-13 10:25 | NUR ---
CM CM TO VISIT WITH PATIENT. PT DO BE DISCHARGED TODAY.PT DENIES NEEDS. ENCOURAGE PT TO CALL CM SHOULD NEEDS ARISE. Addendum: 02/13/17 at 1028 by BYRON DE JESUS RN Amended: Links added.
--- NOTE | 2017-02-13 11:34 | DSPDOC ---
MEME BALLARD V PARALEGALS 02/13/17 1134: General Date Date DATE: 02/13/17 TIME: 11:28 Attending Physician Yesy Chiang MD Admitting Physician Yesy Chiang MD Consulting Physician None Admitting Diagnosis Acute Pancreatitis, dehydration, n/v/d Discharge Diagnosis Acute pancreatitis-improved Leukocytosis-improved Dehydration Nausea, vomiting, diarrhea, abdominal pain Migraine headaches Depression, anxiety GERD Back pain Procedures None Laboratory Laboratory Tests Test 02/12/17 05:06 02/13/17 04:33 White Blood Count 8.6T/MM3 (4.5-11.0) 5.8T/MM3 (4.5-11.0) Red Blood Count 4.77M/MM3 (4.50-5.90) 4.74M/MM3 (4.50-5.90) Hemoglobin 14.7GM/DL (13.5-17.5) 15.0GM/DL (13.5-17.5) Hematocrit 44.5% (41-53) 43.5% (41-53) Mean Corpuscular Volume 93.3UM3 (80-100) 91.8UM3 (80-100) Mean Corpuscular Hemoglobin 30.8UUG (26-34) 31.6UUG (26-34) Mean Corpuscular Hemoglobin Concent 33.0GM/DL (31-37) 34.5GM/DL (31-37) RDW Standard Deviation 47.5FL (36.9-50.2) 45.8FL (36.9-50.2) Platelet Count 215T/MM3 (130-400) 216T/MM3 (130-400) Mean Platelet Volume 10.4UM3 (9.4-12.4) 10.5UM3 (9.4-12.4) Immature Granulocyte % (Auto) 0.2% (0.0-0.5) 0.5% (0.0-0.5) Neutrophils (%) (Auto) 72.9% (33-66) 57.9% (33-66) Lymphocytes (%) (Auto) 16.6% (23-45) 24.9% (23-45) Monocytes (%) (Auto) 7.5% (0-9.0) 10.5% (0-9.0) Eosinophils (%) (Auto) 2.2% (0-4) 5.5% (0-4) Basophils (%) (Auto) 0.6% (0-2) 0.7% (0-2) Absolute Immature Granulocyte (auto 0.02T/MM3 (0.00-0.03) 0.03T/MM3 (0.00-0.03) Absolute Neutrophils (auto) 6.3T/MM3 (1.8-7.7) 3.4T/MM3 (1.8-7.7) Absolute Lymphocytes (auto) 1.4T/MM3 (1-4.8) 1.4T/MM3 (1-4.8) Absolute Monocytes (auto) 0.7T/MM3 (0-0.8) 0.6T/MM3 (0-0.8) Absolute Eosinophils (auto) 0.2T/MM3 (0-0.5) 0.3T/MM3 (0-0.5) Absolute Basophils (auto) 0.1T/MM3 (0-0.2) 0.0T/MM3 (0-0.2) Turbidity < 20 (0-20) < 20 (0-20) Sodium Level 143MEQ/L (134-144) 140MEQ/L (134-144) Potassium Level 4.1MEQ/L (3.6-5) 3.7MEQ/L (3.6-5) Chloride Level 109MEQ/L (98-107) 107MEQ/L (98-107) Carbon Dioxide Level 24MEQ/L (22-30) 25MEQ/L (22-30) Anion Gap 10MEQ/L (5-15) 8MEQ/L (5-15) Blood Urea Nitrogen 10.0MG/DL (9-20) 7.0MG/DL (9-20) Creatinine 1.1MG/DL (0.8-1.5) 1.0MG/DL (0.8-1.5) Glomerular Filtration Rate Calc 69 77 BUN/Creatinine Ratio 9RATIO (6-26) 7RATIO (6-26) Glucose Level 72MG/DL (75-110) 83MG/DL (75-110) Calculated Osmolality 273MOSM/KG (261-280) 266MOSM/KG (261-280) Calcium Level 8.0MG/DL (8.4-10.2) 8.3MG/DL (8.4-10.2) Magnesium Level 2.1MG/DL (1.6-2.3) Total Bilirubin 1.10MG/DL (0.20-1.30) Icterus Index < 2 (0-7) < 2 (0-7) Aspartate Amino Transf (AST/SGOT) 22U/L (17-59) Alanine Aminotransferase (ALT/SGPT) 32U/L (21-72) Alkaline Phosphatase 68U/L (38-126) Total Protein 6.3G/DL (6.3-8.2) Albumin 3.3G/DL (3.5-5.0) Globulin 3.0G/DL (2.4-3.6) Albumin/Globulin Ratio 1.1RATIO (1.1-2.2) Lipase 218U/L (23-300) Chemistry Specimen Hemolysis < 15 (0-25) < 15 (0-25) Microbiology Microbiology Date/Time Source Procedure Growth Status 02/10/17 22:31 Peripheral/Iv Start Blood Culture - Preliminary NO GROWTH AFTER 48 HOURS Resulted 02/10/17 22:31 Peripheral/Iv Start Blood Culture - Preliminary NO GROWTH AFTER 48 HOURS Resulted Radiology 02/10/17-abdominal/pelvis CT-negative for significant acute inflammatory process 02/11/17-gallbladder ultrasound was negative for cholelithiasis or biliary duct dilatation, diffuse fatty liver disease, poor visualization of the pancreas History of Present Illness This is a 56y/o male with history of anxiety, depression, back pain, GERD and migraine HAs who presents to ER at [facility] [place] w/ chief concern of n/v/d & abdominal pain x past 12-24 hours and some malaise. Patient reports mild abdominal tenderness in LUQ which has improved with morphine IV Patient apparently took some OTC L-Tyrosine and OTC 5HTP(hydroxytryptophan) approximately one hour prior to the onset of symptoms. He states that he had run out of his Symbiax yesterday and read online that he could take these two OTC supplements in lieu of the Symbiax. He also reports that he drinks approximately 3 beers every day and has so recently, however states prior to that it was more like 2 beers every other day. He denies drinking anything other than beer and states 3 is the most he will drink in one day d/t EtOH triggering his migraines if he drinks more than that. He also takes Excedrin Migraine BID and recently took 800mg ibuprofen TID for back pain (he stopped the ibuprofen about a week ago). Patient reported having some sweats and feeling "hot" today. Patient denies cough, shortness of breath, dyspnea and denies dysphagia, hematemesis and did have a "mild migraine" JALLOH. Patient denies fevers. In ER his lipase was noted to be 1581 and he had a WBC of 17.7 w/ 93% Neutrophils; CT scan of abdomen and pelvis was per prelim report negative. O2 Sats 96% on RA and otherwise Vital signs reported as "stable" in ER. Patient to be admitted to the Hospitalist service for further evaluation and management. Patient currently is feeling better after MSO4. Denies abdominal pain and n/v at this time. Patient's PCP in [place], [place] Hospital Course 02/10 Admit to Hospitalist service - inpatient Blood cultures x 2 Zosyn 3.375g IV q 6 hours empiric treatment IVFs that of NS TRA 125cc/hour Consider US GB and Liver in AM NPO Labs in AM including repeat Lipase Prn Zofran for n/v Prn MSO4 prn for pain Telemetry Hold home meds for now except will have pharmacy sub for Symbiax as patient states he does not do well when he goes too long w/o it Ativan 0.5mg IV q 6 hours prn Protonix 40mg IV q 24 hours Discussed alcohol cessation - patient denies tremors or any w/d issues in the past Fasting lipid profile in AM D/c OTC supplements that of L-tyrosine and hydroxytryptophan 02/11 Pain improving. Morphine helping-seeing better and longer lasting pain relief. Nausea resolve. Passing slight amounts of flatus. Appetite increasing. Breathing well. No f/c. WBC normalized. Lipase decreasing Will check US GB due to pancreatitis to exclude stones. Lipid profile pending. Decrease IVF to 75 cc/hr. Encourage increase activities. Continue NPO status - possible advance to clears if Sono normal. Did advise caution with po intake (watch for increased pain/nausea). Recheck CMP, Mg and lipase in am due to pancreatitis Repeat CBC in am due to resolving leukocytosis. 02/13/17-discharge Bryant is seen and examined today. Overall he is feeling much better without nausea or abdominal pain. He was able to advance diet at breakfast and tolerated this well. Throughout his hospitalization labs have been followed and leukocytosis has resolved with white count normal at 5.8. Lipase has also normalized down to 218. He agrees with plan to discharge home and follow-up with his primary care provider Dr العلي. Encourage continued avoidance of alcohol intake as this may worsen abdominal pain and/or pancreatitis. May continue to use tramadol as needed for chronic back pain. Work note given to patient, recommended that he may return to work on Saturday02/18/17. This is a general summation of the patients hospital course. Please refer to the medical record if additional detail is needed. Total discharge time greater than 20 minutes Problems: Code Status Full Code Home Meds Reported Medications Aspirin/Acetaminophen/Caffeine (Excedrin Migraine Caplet) 1 Each Tablet, 1 TAB PO Q6H Y for PAIN 02/10/17 Rizatriptan Benzoate (Rizatriptan) 10 Mg Tablet, 10 MG PO PRN Y for migraines 02/10/17 Tramadol HCl (Tramadol HCl) 50 Mg Tablet, 50 MG PO Q4HR Y for PAIN 02/10/17 Dronabinol (Dronabinol) 10 Mg Capsule, 10 MG PO DAILY 02/10/17 Cyclobenzaprine HCl (Cyclobenzaprine HCl) 10 Mg Tablet, 10 MG PO BID 02/10/17 Olanzapine/Fluoxetine HCl (Symbyax 12-50 mg Capsule) 1 Each Capsule, 1 TAB PO DAILY 02/10/17 Methylphenidate HCl (Concerta) 54 Mg Tab.er.24, 1 TAB PO DAILY 02/10/17 Discontinued Reported Medications Ibuprofen (Ibuprofen) 800 Mg Tablet, 800 MG PO TID Y for PAIN 02/10/17 Hydrocodone/Apap ([place] 5-325 Tablet) 5-325 Tablet, 1 TAB PO Q8H Y for PAIN 02/10/17 Face to Face Encounter I met with patient on the day of dismissal and discussed follow up appointments , medications, and safety plan. Discharge Disposition stable Copies To 1: YESY Salgado MD 02/13/17 1249: Hospital Course 02/13/2017-I reviewed this chart, the patient history, and the PARALEGALS's/PA's documented findings as above. We discussed and formulated the assessment and plan as above with the additions below.-Dr. Chiang The patient states he's feeling well today. He was able to tolerate a regular breakfast and is eating regular food for lunch. He denies any abdominal pain or nausea. He is breathing well. He is urinating without difficulties. He has no complaints. He states his Symbyax is now available at the pharmacy. I did instruct him to stop taking the [id number] L tyrosine and stop the hydroxytryptophan. I did recommend that he follow-up with his primary care physician. I also stated that now that he is back in the area he may want to see his psychiatrist at [place] and he stated that sounded like a good idea to him. Encouraged him to avoid alcohol as this might be causing difficulties with pancreatitis. He also stated that he was taking some other over the counter medications prescribed by a physician out of state. I recommended that he stop these medications and show them to his primary care physician who can decide if these are likely to be safe for him or not. On exam the patient is alert and oriented and in no acute distress. Chest is clear to auscultation. Cardiovascular reveals a regular rate and rhythm. Abdomen is soft and nontender with good bowel sounds. Dismiss to home today in good condition. Follow-up with primary care. Problems: Home Meds Reported Medications Aspirin/Acetaminophen/Caffeine (Excedrin Migraine Caplet) 1 Each Tablet, 1 TAB PO Q6H Y for PAIN 02/10/17 Rizatriptan Benzoate (Rizatriptan) 10 Mg Tablet, 10 MG PO PRN Y for migraines 02/10/17 Tramadol HCl (Tramadol HCl) 50 Mg Tablet, 50 MG PO Q4HR Y for PAIN 02/10/17 Dronabinol (Dronabinol) 10 Mg Capsule, 10 MG PO DAILY 02/10/17 Cyclobenzaprine HCl (Cyclobenzaprine HCl) 10 Mg Tablet, 10 MG PO BID 02/10/17 Olanzapine/Fluoxetine HCl (Symbyax 12-50 mg Capsule) 1 Each Capsule, 1 TAB PO DAILY 02/10/17 Methylphenidate HCl (Concerta) 54 Mg Tab.er.24, 1 TAB PO DAILY 02/10/17 Discontinued Reported Medications Ibuprofen (Ibuprofen) 800 Mg Tablet, 800 MG PO TID Y for PAIN 02/10/17 Hydrocodone/Apap ([place] 5-325 Tablet) 5-325 Tablet, 1 TAB PO Q8H Y for PAIN 02/10/17 Copies To 1: MEME Maria APRN Feb 13, 2017 11:34 YESY CHIANG MD Feb 13, 2017 12:49
--- NOTE | 2017-02-13 13:24 | NUR ---
DISCHARGED PT IS WALKED TO PRIVATE VEHICLE BY STAFF. DISCHARGE AND MEDICATION INSTRUCTIONS GIVEN PRIOR TO DISMISSAL. ALL QUESTIONS ANSWERED.
== END 2017-02-13 13:52 | disposition home or self-care (01) | DRG 440 ==
LOC: ED 16:56 → EDHOLD 22:26 → MED 23:12
PROVIDERS: ADMIT Internal Medicine; ATTEND Internal Medicine
DX: K85.90 Acute pancreatitis without necrosis or infection, unspecified (principal); E86.0 Dehydration; E03.9 Hypothyroidism, unspecified; G43.909 Migraine, unspecified, not intractable, without status migrainosus; F32.9 Major depressive disorder, single episode, unspecified; F41.9 Anxiety disorder, unspecified; K21.9 Gastro-esophageal reflux disease without esophagitis; M54.9 Dorsalgia, unspecified; K76.0 Fatty (change of) liver, not elsewhere classified; G89.29 Other chronic pain; Z79.899 Other long term (current) drug therapy; Z79.82 Long term (current) use of aspirin
CPT/HCPCS: 36415; 80048; 80053; 80061; 81001; 83690; 83735; 84484; 85025; 87040; 96361; 96374

== ENCOUNTER 2017-03-02 12:56 | Emergency (ER) | payer BC ==
[~2017-03-02] VITALS: Ht 190.5 cm; Wt 111.0 kg
[~2017-03-02 12:56] MED LIST: ASPI1TAB7 PO; CYCL-375 PO; DRON10CA2 PO; METH54TA PO; OLAN1CAP PO; RIZA10TA26 PO; TRAM50TA4 PO
--- OUTSIDE RECORDS SUMMARY | 2017-03-02 12:59 | XMS REPORT | Continuity of Care Document ---
Author Author [facility] Organization [facility] Address Unknown Phone Unavailable Support Name Relationship Address Phone YESY CHIANG MD Caregiver [address] [place] [address] Unavailable CARLOS A BEDOLLA MD Caregiver [address] [facility] [place] [address] Unavailable JOYCE KIRBY Caregiver [address] [place] [address] Unavailable PRANEETH CORREA MD Caregiver [address] [place] [address] [place] [phone] Unavailable L[place]GELES Next Of Kin [address] [place], [place] [address] Insurance Providers Guarantor Bryant Lemus Address [address] [place] [address] Email DENIED 17 Payer [facility] Policy Number [id number] Subscriber's Name Bryant Lemus Relationship 18 Self Group Number [id number] Advance Directives Directive Response Recorded Date/Time Advanced Directives Type None 02/10/17 6:41pm Ordered Resuscitation Status Full Code 02/10/17 10:30pm Resuscitation Documents on File No 02/10/17 11:43pm DPOA for Healthcare Only No 02/10/17 11:43pm Living Will No 02/10/17 11:43pm Problems Past Problems Medical Problem Onset Date Acute pancreatitis Unknown Neutrophilic leukocytosis Unknown Medications Current Home Medications Medication Dose Units Route Directions Days Qty Instructions Start Date Aspirin/Acetaminophen/Caffeine (Excedrin Migraine Caplet) 1 Each Tablet 1 Tab Oral Every 6 Hours as needed for Pain 02/10/17 Cyclobenzaprine Hcl 10 Mg Tablet 10 Mg Oral Twice A Day 02/10/17 Dronabinol 10 Mg Capsule 10 Mg Oral Daily 02/10/17 Methylphenidate Hcl (Concerta) 54 Mg Tab.er.24 1 Tab Oral Daily 02/10/17 Olanzapine/Fluoxetine Hcl (Symbyax 12-50 Mg Capsule) 1 Each Capsule 1 Tab Oral Daily 02/10/17 Rizatriptan Benzoate (Rizatriptan) 10 Mg Tablet 10 Mg Oral As Needed as needed for Migraines 02/10/17 Tramadol Hcl 50 Mg Tablet 50 Mg Oral Every 4 Hours as needed for Pain 02/10/17 Past Home Medications Medication Directions Ordered Status Acetaminophen/Hydrocodone Bitart ([place] 5-325 Tablet) 5-325 Tablet, 1 Tab Oral Every 8 Hours as needed for Pain 02/10/17 Discontinued Ibuprofen 800 Mg Tablet, 800 Mg Oral Three Times A Day as needed for Pain Discontinued Social History Social History Problem Response Recorded Date/Time Onset Date Status Reason for Hospitalization Pancreatitis, leukocytosis 02/13/2017 11:23am Not Applicable Not Applicable Hx Substance Use No 02/10/2017 6:43pm Not Applicable Not Applicable Hx Alcohol Use Y COUPLE BEERS EVERY OTHER DAY 02/10/2017 6:43pm Not Applicable Not Applicable Has the pt used tobacco in the last 12 months No 02/10/2017 11:46pm Not Applicable Not Applicable Query Response Start Date Stop Date Smoking Status Never smoker Hospital Discharge Instructions Instructions: Care Instructions: Reason for Hospitalization: Pancreatitis, leukocytosis I was in the hospital because (patient own words): I have pancreatitis. Discharge Diet: regular diet Discharge Activity: Activity as tolerated Follow Up Appointments: Please schedule follow-up appointment with primary care provider Dr Kirby in 1-2 weeks [phone] APPOITMENT ON 02/22 AT 10:30. Pending Lab / Results: No Pending Lab Patient Instructions: Continue to advance diet cautiously as able. Avoid alcohol intake Continue with home medications Follow up with PCP in 1 week Wound/Incision Care: N/A Pain Management/Treatment: Ultram as needed for pain control Expected Signs/Symptoms: Continued improvement in appetite and strength Notify Physician If: Abdominal pain, vomiting, diarrhea, or other concerning symptoms During Business Hours:: Please call the physician's office After Business Hours:: Please call your primary care provider Condition at time of discharge: Good Plan of Care Discharge Date 02/13/17 1:52pm Disposition 01 DISCHARGED HOME, SELF-CARE Instructions/Education Provided Pancreatitis (DC) Prescriptions See Medication Section Additional Instructions/Education Stop OTC L tyrosine Stop OTC hydroxytryptophan (5HTP) Did not drive if taking [place] Care Plan and Goals See Discharge Instructions Section Functional Status Query Response Date Recorded Mobility Status Ambulatory February 13, 2017 11:23am Assistive Devices None February 13, 2017 11:23am Activity Limitations None February 13, 2017 11:23am Feeding Ability Independent February 13, 2017 11:23am Toileting Ability Independent February 13, 2017 11:23am Grooming Ability Independent February 13, 2017 11:23am Dressing Ability Independent February 13, 2017 11:23am Driving Ability Independent February 13, 2017 11:23am Housework Ability Independent February 13, 2017 11:23am Meal Preparation Ability Independent February 13, 2017 11:23am Stair Climbing Ability Independent February 13, 2017 11:23am Ability to complete ADL's impeded by No change February 13, 2017 11:23am Cognitive/Perceptual Impairments Impaired vision February 10, 2017 11:49pm Visual Assistive Devices Glasses With patient February 10, 2017 11:49pm Preferred Method of Learning Reading Listening February 10, 2017 11:49pm Allergies, Adverse Reactions, Alerts No known allergies. Immunizations Query Response on File Recorded Date/Time Hx Influenza Vaccination Y fall 201502/10/17 11:46pm Hx Pneumococcal Vaccination No 02/10/17 11:46pm Hx Influenza Vaccination Y fall 201502/10/17 11:46pm Influenza Vaccine Hx fall 201502/10/17 11:49pm Vital Signs Acute Vital Signs Vital Response Date/Time Temperature (Fahrenheit) 97.4 deg F (96.8 - 99.1) 02/13/2017 8:00am Temperature (Calculated Celsius) 36.90483 degrees C (36.0 - 37.3) 02/13/2017 8:00am Pulse Rate (adult) 58 bpm (60 - 100) 02/13/2017 8:00am Respiratory Rate 16 breaths/min (10 - 20) 02/13/2017 8:00am O2 Sat by Pulse Oximetry 96 % (90 - 100) 02/13/2017 8:00am Oxygen Delivery Method Room Air 02/13/2017 8:00am Blood Pressure 137/86 mm Hg 02/13/2017 8:00am Blood Pressure Source Automatic Cuff 02/13/2017 8:00am Height (Feet) 6 feet 02/12/2017 3:20pm Height (Inches) 3.00 inches 02/12/2017 3:20pm Weight (Kilograms) 110.900 kg 02/13/2017 8:00am Body Mass Index (BMI) 30.3 02/10/2017 11:40pm Results Laboratory Results Test Name Result Units Flags Reference Collection Date/Time Result Date/ Time Comments White Blood Count 5.8 T/MM3 4.5-11.0 02/13/2017 4:02/13/2017 5: 27am Red Blood Count 4.74 M/MM3 4.50-5.90 02/13/2017 4:02/13/2017 5: 27am Hemoglobin 15.0 GM/DL 13.5-17.5 02/13/2017 4:02/13/2017 5:27am Hematocrit 43.5 % 41-53 02/13/2017 4:02/13/2017 5:27am Mean Corpuscular Volume 91.8 UM3 80-100 02/13/2017 4:02/13/2017 5: 27am Mean Corpuscular Hemoglobin 31.6 UUG 26-34 02/13/2017 4:2016 5:27am Mean Corpuscular Hemoglobin Concent 34.5 GM/DL 31-37 02/13/2017 4:02/13/2017 5:27am RDW Standard Deviation 45.8 FL 36.9-50.2 02/13/2017 4:02/13/2017 5 :27am Platelet Count 216 T/MM3 130-400 02/13/2017 4:02/13/2017 5:27am Mean Platelet Volume 10.5 UM3 9.4-12.4 02/13/2017 4:02/13/2017 5: 27am Neutrophils (%) (Auto) 57.9 % 33-66 02/13/2017 4:02/13/2017 5: 27am Lymphocytes (%) (Auto) 24.9 % 23-45 02/13/2017 4:02/13/2017 5: 27am Monocytes (%) (Auto) 10.5 % H 0-9.0 02/13/2017 4:02/13/2017 5:27am Eosinophils (%) (Auto) 5.5 % H 0-4 02/13/2017 4:02/13/2017 5:27am Basophils (%) (Auto) 0.7 % 0-2 02/13/2017 4:33am 02/13/2017 5:27am Immature Granulocyte % (Auto) 0.5 % 0.0-0.5 02/13/2017 4:33am 2016 5:27am Absolute Neutrophils (auto) 3.4 T/MM3 1.8-7.7 02/13/2017 4:33am 2016 5:27am Absolute Lymphocytes (auto) 1.4 T/MM3 1-4.8 02/13/2017 4:33am 2016 5:27am Absolute Monocytes (auto) 0.6 T/MM3 0-0.8 02/13/2017 4:33am 02/13/2017 5:27am Absolute Eosinophils (auto) 0.3 T/MM3 0-0.5 02/13/2017 4:33am 2016 5:27am Absolute Basophils (auto) 0.0 T/MM3 0-0.2 02/13/2017 4:33am 02/13/2017 5:27am Absolute Immature Granulocyte (auto 0.03 T/MM3 0.00-0.03 02/13/2017 4: 33am 02/13/2017 5:27am Neutrophils % (Manual) 93.0 % H 33-66 02/10/2017 7:46pm 02/10/2017 8: 25pm Lymphocytes % (Manual) 4.0 % L 23-45 02/10/2017 7:46pm 02/10/2017 8: 25pm Monocytes % (Manual) 2.0 % 0-9.0 02/10/2017 7:46pm 02/10/2017 8:25pm Basophils % (Manual) 1.0 % 0-2 02/10/2017 7:46pm 02/10/2017 8:25pm Absolute Neutrophils (Manual) 16.5 T/MM3 H 1.8-7.7 02/10/2017 7:46pm 8:25pm Lymphocytes # (Manual) 0.7 T/MM3 L 1-4.8 02/10/2017 7:46pm 02/10/2017 8: 25pm Monocytes # (Manual) 0.4 T/MM3 0-0.8 02/10/2017 7:46pm 02/10/2017 8: 25pm Basophils # (Manual) 0.2 T/MM3 0-0.2 02/10/2017 7:46pm 02/10/2017 8: 25pm Red Cell Morphology Comment NORMAL 02/10/2017 7:46pm 02/10/2017 8: 25pm Icterus Index < 2 0-7 02/13/2017 4:33am 02/13/2017 5:39am Chemistry Specimen Hemolysis < 15 0-25 02/13/2017 4:33am 02/13/2017 5 :39am 0-25: Specimen Exhibited No Hemolysis. Turbidity < 20 0-20 02/13/2017 4:33am 02/13/2017 5:39am Sodium Level 140 MEQ/L 134-144 02/13/2017 4:33am 02/13/2017 5:39am Potassium Level 3.7 MEQ/L 3.6-5 02/13/2017 4:33am 02/13/2017 5:39am Chloride Level 107 MEQ/L 98-107 02/13/2017 4:33am 02/13/2017 5:39am Carbon Dioxide Level 25 MEQ/L 22-30 02/13/2017 4:33am 02/13/2017 5: 39am Anion Gap 8 MEQ/L 5-15 02/13/2017 4:33am 02/13/2017 5:39am Blood Urea Nitrogen 7.0 MG/DL L 9-20 02/13/2017 4:33am 02/13/2017 5: 39am Creatinine 1.0 MG/DL 0.8-1.5 02/13/2017 4:33am 02/13/2017 5:39am BUN/Creatinine Ratio 7 RATIO 6-26 02/13/2017 4:3302/13/2017 5:39am Glomerular Filtration Rate Calc 77 02/13/2017 4:3302/13/2017 5: 39am Glucose Level 83 MG/DL 75-110 02/13/2017 4:3302/13/2017 5:39am Calculated Osmolality 266 MOSM/KG 261-280 02/13/2017 4:3302/13/2017 5:39am Calcium Level 8.3 MG/DL L 8.4-10.2 02/13/2017 4:3302/13/2017 5:39am Total Bilirubin 1.10 MG/DL 0.20-1.30 02/12/2017 5:0602/12/2017 5: 46am Alkaline Phosphatase 68 U/L 38-126 02/12/2017 5:06am 02/12/2017 5:46am Total Protein 6.3 G/DL 6.3-8.2 02/12/2017 5:0602/12/2017 5:46am Albumin 3.3 G/DL L 3.5-5.0 02/12/2017 5:06am 02/12/2017 5:46am Globulin 3.0 G/DL 2.4-3.6 02/12/2017 5:06am 02/12/2017 5:46am Albumin/Globulin Ratio 1.1 RATIO 1.1-2.2 02/12/2017 5:06am 02/12/2017 5 :46am Aspartate Amino Transf (AST/SGOT) 22 U/L 17-59 02/12/2017 5:06am 2016 5:46am Alanine Aminotransferase (ALT/SGPT) 32 U/L 21-72 02/12/2017 5:06am 5:46am Cholesterol Level 189 MG/DL 132-199 02/11/2017 6:34am 02/12/2017 3: 16am Triglycerides Level 114 MG/DL 40-160 02/11/2017 6:34am 02/12/2017 3: 16am HDL Cholesterol Direct 27 MG/DL L 40-60 02/11/2017 6:34am 02/12/2017 3: 16am LDL Cholesterol, Calculated 139.2 66-159 02/11/2017 6:34am 2016 3:16am VLDL Cholesterol 22.8 MG/DL 0-28 02/11/2017 6:34am 02/12/2017 3:16am Cholesterol/HDL Ratio 7.0 RATIO H 0-5.0 02/11/2017 6:34am 02/12/2017 3: 16am Troponin I < 0.012 ng/ml 0-0.12 02/10/2017 7:46pm 02/10/2017 8:29pm Troponin values with a difference of 55% increase from orginal troponin value represent a true biological DELTA value. (%increase Calc=Orginal Troponin value, divided by subsequent Troponin value, multiplied by 100) Lipase 218 U/L 23-300 02/12/2017 5:06am 02/12/2017 5:46am Magnesium Level 2.1 MG/DL 1.6-2.3 02/12/2017 5:06am 02/12/2017 5:46am Urine Collection Type VOIDED-NOT CC-MIDSTR 02/10/2017 7:46pm 2016 8:12pm Urine Color YELLOW YELLOW 02/10/2017 7:46pm 02/10/2017 8:12pm Urine Turbidity CLEAR CLEAR 02/10/2017 7:46pm 02/10/2017 8:12pm Urine Specific [place] 1.020 1.015-1.025 02/10/2017 7:46pm 2016 8:12pm Urine pH 6.5 5.0-8.0 02/10/2017 7:46pm 02/10/2017 8:12pm Urine Leukocyte Esterase NEGATIVE NEGATIVE 02/10/2017 7:46pm 2016 8:12pm Urine Nitrite NEGATIVE NEGATIVE 02/10/2017 7:46pm 02/10/2017 8:12pm Urine Protein TRACE A NEGATIVE 02/10/2017 7:46pm 02/10/2017 8:12pm Urine Glucose (UA) NEGATIVE NEGATIVE 02/10/2017 7:46pm 02/10/2017 8: 12pm Urine Ketones 1+ A NEGATIVE 02/10/2017 7:46pm 02/10/2017 8:12pm Urine Urobilinogen 0.2 EU/DL NORMAL 02/10/2017 7:46pm 02/10/2017 8: 12pm Urine Bilirubin 2+ A NEGATIVE 02/10/2017 7:46pm 02/10/2017 8:12pm Urine Blood 1+ A NEGATIVE 02/10/2017 7:46pm 02/10/2017 8:12pm Urine WBC 1-3 /HPF 0-5 02/10/2017 7:46pm 02/10/2017 8:21pm Urine RBC 1-3 /HPF 0-3 02/10/2017 7:46pm 02/10/2017 8:21pm Urine Squamous Epithelial Cells 0-5 02/10/2017 7:46pm 02/10/2017 8: 21pm Urine Bacteria TRACE H NEGATIVE 02/10/2017 7:46pm 02/10/2017 8:21pm Urine Mucus PRESENT 02/10/2017 7:46pm 02/10/2017 8:21pm Urine Culture Indicated CULT NOT INDICATED 02/10/2017 7:46pm 2016 8:21pm Microbiology Results Procedure Source Organism/Result Collection Date/Time Result Date/Time Result Status Blood Culture Peripheral/Iv Start NO GROWTH AFTER 48 HOURS 02/10/2017 10: 31pm 02/12/2017 10:34pm Preliminary Name: BRYANT LEMUS Unit #: [id number] : 1960 Sex: M DISCHARGE SUMMARY Admit Date: 02/10/17 Report #: [id number] [facility] MEME BALLARD V WAREHOUSE RECEIVER 02/13/17 1134: General Date Date DATE: 02/13/17 TIME: 11:28 Attending Physician eYsy Chiang MD Admitting Physician Ysey Chiang MD Consulting Physician None Admitting Diagnosis Acute Pancreatitis, dehydration, n/v/d Discharge Diagnosis Acute pancreatitis-improved Leukocytosis-improved Dehydration Nausea, vomiting, diarrhea, abdominal pain Migraine headaches Depression, anxiety GERD Back pain Procedures None Laboratory Laboratory Tests Test 02/12/17 05:06 02/13/17 04:33 White Blood Count 8.6T/MM3 (4.5-11.0) 5.8T/MM3 (4.5-11.0) Red Blood Count 4.77M/MM3 (4.50-5.90) 4.74M/MM3 (4.50-5.90) Hemoglobin 14.7GM/DL (13.5-17.5) 15.0GM/DL (13.5-17.5) Hematocrit 44.5% (41-53) 43.5% (41-53) Mean Corpuscular Volume 93.3UM3 (80-100) 91.8UM3 (80-100) Mean Corpuscular Hemoglobin 30.8UUG (26-34) 31.6UUG (26-34) Mean Corpuscular Hemoglobin Concent 33.0GM/DL (31-37) 34.5GM/DL (31-37) RDW Standard Deviation 47.5FL (36.9-50.2) 45.8FL (36.9-50.2) Platelet Count 215T/MM3 (130-400) 216T/MM3 (130-400) Mean Platelet Volume 10.4UM3 (9.4-12.4) 10.5UM3 (9.4-12.4) Immature Granulocyte % (Auto) 0.2% (0.0-0.5) 0.5% (0.0-0.5) Neutrophils (%) (Auto) 72.9% (33-66) 57.9% (33-66) Lymphocytes (%) (Auto) 16.6% (23-45) 24.9% (23-45) Monocytes (%) (Auto) 7.5% (0-9.0) 10.5% (0-9.0) Eosinophils (%) (Auto) 2.2% (0-4) 5.5% (0-4) Basophils (%) (Auto) 0.6% (0-2) 0.7% (0-2) Absolute Immature Granulocyte (auto 0.02T/MM3 (0.00-0.03) 0.03T/MM3 (0.00-0.03) Absolute Neutrophils (auto) 6.3T/MM3 (1.8-7.7) 3.4T/MM3 (1.8-7.7) Absolute Lymphocytes (auto) 1.4T/MM3 (1-4.8) 1.4T/MM3 (1-4.8) Absolute Monocytes (auto) 0.7T/MM3 (0-0.8) 0.6T/MM3 (0-0.8) Absolute Eosinophils (auto) 0.2T/MM3 (0-0.5) 0.3T/MM3 (0-0.5) Absolute Basophils (auto) 0.1T/MM3 (0-0.2) 0.0T/MM3 (0-0.2) Turbidity < 20 (0-20) < 20 (0-20) Sodium Level 143MEQ/L (134-144) 140MEQ/L (134-144) Potassium Level 4.1MEQ/L (3.6-5) 3.7MEQ/L (3.6-5) Chloride Level 109MEQ/L (98-107) 107MEQ/L (98-107) Carbon Dioxide Level 24MEQ/L (22-30) 25MEQ/L (22-30) Anion Gap 10MEQ/L (5-15) 8MEQ/L (5-15) Blood Urea Nitrogen 10.0MG/DL (9-20) 7.0MG/DL (9-20) Creatinine 1.1MG/DL (0.8-1.5) 1.0MG/DL (0.8-1.5) Glomerular Filtration Rate Calc 69 77 BUN/Creatinine Ratio 9RATIO (6-26) 7RATIO (6-26) Glucose Level 72MG/DL (75-110) 83MG/DL (75-110) Calculated Osmolality 273MOSM/KG (261-280) 266MOSM/KG (261-280) Calcium Level 8.0MG/DL (8.4-10.2) 8.3MG/DL (8.4-10.2) Magnesium Level 2.1MG/DL (1.6-2.3) Total Bilirubin 1.10MG/DL (0.20-1.30) Icterus Index < 2 (0-7) < 2 (0-7) Aspartate Amino Transf (AST/SGOT) 22U/L (17-59) Alanine Aminotransferase (ALT/SGPT) 32U/L (21-72) Alkaline Phosphatase 68U/L (38-126) Total Protein 6.3G/DL (6.3-8.2) Albumin 3.3G/DL (3.5-5.0) Globulin 3.0G/DL (2.4-3.6) Albumin/Globulin Ratio 1.1RATIO (1.1-2.2) Lipase 218U/L (23-300) Chemistry Specimen Hemolysis < 15 (0-25) < 15 (0-25) Microbiology Microbiology Date/Time Source Procedure Growth Status 02/10/17 22:31 Peripheral/Iv Start Blood Culture - Preliminary NO GROWTH AFTER 48 HOURS Resulted 02/10/17 22:31 Peripheral/Iv Start Blood Culture - Preliminary NO GROWTH AFTER 48 HOURS Resulted Radiology 02/10/17-abdominal/pelvis CT-negative for significant acute inflammatory process 02/11/17-gallbladder ultrasound was negative for cholelithiasis or biliary duct dilatation, diffuse fatty liver disease, poor visualization of the pancreas History of Present Illness This is a 56y/o male with history of anxiety, depression, back pain, GERD and migraine HAs who presents to ER at [facility] w/ chief concern of n/v/d & abdominal pain x past 12-24 hours and some malaise. Patient reports mild abdominal tenderness in LUQ which has improved with morphine IV Patient apparently took some OTC L-Tyrosine and OTC 5HTP(hydroxytryptophan) approximately one hour prior to the onset of symptoms. He states that he had run out of his Symbiax yesterday and read online that he could take these two OTC supplements in lieu of the Symbiax. He also reports that he drinks approximately 3 beers every day and has so recently, however states prior to that it was more like 2 beers every other day. He denies drinking anything other than beer and states 3 is the most he will drink in one day d/t EtOH triggering his migraines if he drinks more than that. He also takes Excedrin Migraine BID and recently took 800mg ibuprofen TID for back pain (he stopped the ibuprofen about a week ago). Patient reported having some sweats and feeling "hot" today. Patient denies cough, shortness of breath, dyspnea and denies dysphagia, hematemesis and did have a "mild migraine" JALLOH. Patient denies fevers. In ER his lipase was noted to be 1581 and he had a WBC of 17.7 w/ 93% Neutrophils; CT scan of abdomen and pelvis was per prelim report negative. O2 Sats 96% on RA and otherwise Vital signs reported as "stable" in ER. Patient to be admitted to the Hospitalist service for further evaluation and management. Patient currently is feeling better after MSO4. Denies abdominal pain and n/v at this time. Patient's PCP in [place], [place] Hospital Course 02/10 Admit to Hospitalist service - inpatient Blood cultures x 2 Zosyn 3.375g IV q 6 hours empiric treatment IVFs that of NS TRA 125cc/hour Consider US GB and Liver in AM NPO Labs in AM including repeat Lipase Prn Zofran for n/v Prn MSO4 prn for pain Telemetry Hold home meds for now except will have pharmacy sub for Symbiax as patient states he does not do well when he goes too long w/o it Ativan 0.5mg IV q 6 hours prn Protonix 40mg IV q 24 hours Discussed alcohol cessation - patient denies tremors or any w/d issues in the past Fasting lipid profile in AM D/c OTC supplements that of L-tyrosine and hydroxytryptophan 02/11 Pain improving. Morphine helping-seeing better and longer lasting pain relief. Nausea resolve. Passing slight amounts of flatus. Appetite increasing. Breathing well. No f/c. WBC normalized. Lipase decreasing Will check US GB due to pancreatitis to exclude stones. Lipid profile pending. Decrease IVF to 75 cc/hr. Encourage increase activities. Continue NPO status - possible advance to clears if Sono normal. Did advise caution with po intake (watch for increased pain/nausea). Recheck CMP, Mg and lipase in am due to pancreatitis Repeat CBC in am due to resolving leukocytosis. 02/13/17-discharge Bryant is seen and examined today. Overall he is feeling much better without nausea or abdominal pain. He was able to advance diet at breakfast and tolerated this well. Throughout his hospitalization labs have been followed and leukocytosis has resolved with white count normal at 5.8. Lipase has also normalized down to 218. He agrees with plan to discharge home and follow-up with his primary care provider Dr Kirby. Encourage continued avoidance of alcohol intake as this may worsen abdominal pain and/or pancreatitis. May continue to use tramadol as needed for chronic back pain. Work note given to patient, recommended that he may return to work on Saturday02/18/17. This is a general summation of the patients hospital course. Please refer to the medical record if additional detail is needed. Total discharge time greater than 20 minutes Problems: Code Status Full Code Home Meds Reported Medications Aspirin/Acetaminophen/Caffeine (Excedrin Migraine Caplet) 1 Each Tablet, 1 TAB PO Q6H Y for PAIN 02/10/17 Rizatriptan Benzoate (Rizatriptan) 10 Mg Tablet, 10 MG PO PRN Y for migraines 02/10/17 Tramadol HCl (Tramadol HCl) 50 Mg Tablet, 50 MG PO Q4HR Y for PAIN 02/10/17 Dronabinol (Dronabinol) 10 Mg Capsule, 10 MG PO DAILY 02/10/17 Cyclobenzaprine HCl (Cyclobenzaprine HCl) 10 Mg Tablet, 10 MG PO BID 02/10/17 Olanzapine/Fluoxetine HCl (Symbyax 12-50 mg Capsule) 1 Each Capsule, 1 TAB PO DAILY 02/10/17 Methylphenidate HCl (Concerta) 54 Mg Tab.er.24, 1 TAB PO DAILY 02/10/17 Discontinued Reported Medications Ibuprofen (Ibuprofen) 800 Mg Tablet, 800 MG PO TID Y for PAIN 02/10/17 Hydrocodone/Apap ([place] 5-325 Tablet) 5-325 Tablet, 1 TAB PO Q8H Y for PAIN 02/10/17 Face to Face Encounter I met with patient on the day of dismissal and discussed follow up appointments , medications, and safety plan. Discharge Disposition stable Copies To 1: YESY Salgado MD 02/13/17 1249: Hospital Course 02/13/2017-I reviewed this chart, the patient history, and the WAREHOUSE RECEIVER's/PA's documented findings as above. We discussed and formulated the assessment and plan as above with the additions below.-Dr. Chiang The patient states he's feeling well today. He was able to tolerate a regular breakfast and is eating regular food for lunch. He denies any abdominal pain or nausea. He is breathing well. He is urinating without difficulties. He has no complaints. He states his Symbyax is now available at the pharmacy. I did instruct him to stop taking the [id number] L tyrosine and stop the hydroxytryptophan. I did recommend that he follow-up with his primary care physician. I also stated that now that he is back in the area he may want to see his psychiatrist at [place] and he stated that sounded like a good idea to him. Encouraged him to avoid alcohol as this might be causing difficulties with pancreatitis. He also stated that he was taking some other over the counte r medications prescribed by a physician out of state. I recommended that he stop these medications and show them to his primary care physician who can decide if these are likely to be safe for him or not. On exam the patient is alert and oriented and in no acute distress. Chest is clear to auscultation. Cardiovascular reveals a regular rate and rhythm. Abdomen is soft and nontender with good bowel sounds. Dismiss to home today in good condition. Follow-up with primary care. Problems: Home Meds Reported Medications Aspirin/Acetaminophen/Caffeine (Excedrin Migraine Caplet) 1 Each Tablet, 1 TAB PO Q6H Y for PAIN 02/10/17 Rizatriptan Benzoate (Rizatriptan) 10 Mg Tablet, 10 MG PO PRN Y for migraines 02/10/17 Tramadol HCl (Tramadol HCl) 50 Mg Tablet, 50 MG PO Q4HR Y for PAIN 02/10/17 Dronabinol (Dronabinol) 10 Mg Capsule, 10 MG PO DAILY 02/10/17 Cyclobenzaprine HCl (Cyclobenzaprine HCl) 10 Mg Tablet, 10 MG PO BID 02/10/17 Olanzapine/Fluoxetine HCl (Symbyax 12-50 mg Capsule) 1 Each Capsule, 1 TAB PO DAILY 02/10/17 Methylphenidate HCl (Concerta) 54 Mg Tab.er.24, 1 TAB PO DAILY 02/10/17 Discontinued Reported Medications Ibuprofen (Ibuprofen) 800 Mg Tablet, 800 MG PO TID Y for PAIN 02/10/17 Hydrocodone/Apap ([place] 5-325 Tablet) 5-325 Tablet, 1 TAB PO Q8H Y for PAIN 02/10/17 Copies To 1: MEME Maria APRN Feb 13, 2017 11:34 YESY CHIANG MD Feb 13, 2017 12:49 Procedures No known history of procedures. Encounters Encounter Location Arrival/Admit Date Discharge/Depart Date Attending Provider Discharged Inpatient [facility] 02/10/17 10:26pm 02/13/17 1:52pm YESY CHIANG MD
[2017-03-02 13:00] VITALS: Ht 190.5 cm; Wt 111.0 kg
[2017-03-02] MEDS ORDERED: HYDR-3989 PO (13:15)
[2017-03-02] MEDS ORDERED: THYR60TA2 PO (13:15)
--- NOTE | 2017-03-02 13:30 | NUR ---
PHYSICIAN DR HWIPPLE WITH PT
[2017-03-02] MEDS ORDERED: NORMAL SALINE 1,000 ML IV ONE (13:42)
--- NOTE | 2017-03-02 13:42 | ERPDOC ---
Departure Disposition Decision Date: Mar 02, 2017 Disposition Decision Time: 16:38 Disposition: 01 DISCHARGED HOME, SELF-CARE Impression Impression Impression: Primary Impression: History of pancreatitis Severity: Moderate Condition: Improved Seen By: Physician only Referrals: JOYCE KIRBY DO (Family) Patient Instructions: Pancreatitis (ED) Problems/Meds/Labs Reviewed?: Yes Medications reviewed and manag: Yes Additional Instructions: Phenergan 25 mg, one tablet every 6 hours as needed for nausea. Clear liquids for 24 hours, then advance diet as tolerated. Follow-up with your primary care provider. Follow up care ordered?: Yes Mental Status: Alert, Oriented Scripts Promethazine HCl (Promethazine HCl) 25 Mg Tablet 1 TAB PO QID for NAUSEA, #30 TAB Prov: RYAN WHIPPLE MD 03/02/17 HPI - Abdominal Pain General Chief Complaint: Abdominal Pain Stated Complaint: ABD PAIN, PREV PANCREASITIS Time Seen by Provider: 13:26 HPI - Abdominal Pain Initial Comments 56-year-old gentleman with abdominal pain. Patient is left upper quadrant pain for the last 24 hours he asked he felt quite ill yesterday and did not eat. He slept most of the day. No fever or chills, no vomiting although he is had some nausea. No diarrhea. Patient has history of pancreatitis, having been treated approximately 3 weeks ago with a 3 day admission to the hospital. Tried to change his diet, eat less fat. He also quit drinking. He was drinking 3 beers a day plus some liquor. He found that he seems to feel better overall without drinking, but definitely misses it. No chemical exposures at work. No previous abdominal trauma. He does have some pain on the right lower quadrant which is coming on over the last several days, but is not present currently. Allergies: Coded Allergies: No Known Allergies (Unverified , 03/02/17) Past History Past Medical History Metabolic: hypothyroidism ENMT: sleep apnea Male: kidney stones Psychological: anxiety, depression Surgical History General: hernia, tonsils Vaccines Hx Influenza Vaccination: Yes (Fall 2015) Hx Pneumococcal Vaccination: No Social History Substance Use Type: does not use Alcohol Intake: other Current Occupational Status: employed Physical Exam General Vitals and Pain First Documented Vital Signs Date Time Temp Pulse Resp B/P Pulse Ox O2 Delivery O2 Flow Rate FiO2 03/02/17 13:00 99.2 69 15 141/79 97 Room Air Weight: Kilograms: 111.000 Height (feet): 6 Height (inches): 3.00 Triage Pain Scale: Progress Results/Orders Orders Procedure Category Date Status Time Iv Lock (Ed Only) EDM 03/02/17 Transmitted 13:42 Nothing By Mouth (Ed EDM 03/02/17 Transmitted Only) 13:42 Cbc W/Auto LAB 03/02/17 Complete Diff-Reflex Manual 13:42 Cmp - Comprehensive LAB 03/02/17 Complete Metabolic 13:42 Lipase LAB 03/02/17 Complete 13:42 Normal Saline (Normal PHA 03/02/17 Complete Saline Iv) 13:42 Ondansetron Inj PHA 03/02/17 Complete (Zofran) 13:45 Ketorolac (Toradol) PHA 03/02/17 Complete 13:45 Ct Abd/Pelvis CT 03/02/17 Taken W/Contrast Only 13:42 Iohexol (Omnipaque) PHA 03/02/17 Complete 14:15 Normal Saline (Ns) PHA 03/02/17 Complete 14:15 Saline Flush (Iv PHA 03/02/17 Complete Flush) 14:16 UA, LAB 03/02/17 Complete Dip&Micro(Complete) & 15:12 Lab Results Laboratory Tests Test 03/02/17 13:46 03/02/17 15:12 White Blood Count 7.3T/MM3 Red Blood Count 5.54M/MM3 Hemoglobin 17.1GM/DL Hematocrit 50.2% Mean Corpuscular Volume 90.6UM3 Mean Corpuscular Hemoglobin 30.9UUG Mean Corpuscular Hemoglobin Concent 34.1GM/DL RDW Standard Deviation 43.4FL Platelet Count 247T/MM3 Mean Platelet Volume 10.4UM3 Immature Granulocyte % (Auto) 0.1% Neutrophils (%) (Auto) 75.2% Lymphocytes (%) (Auto) 16.3% Monocytes (%) (Auto) 6.2% Eosinophils (%) (Auto) 1.8% Basophils (%) (Auto) 0.4% Absolute Immature Granulocyte (auto 0.01T/MM3 Absolute Neutrophils (auto) 5.5T/MM3 Absolute Lymphocytes (auto) 1.2T/MM3 Absolute Monocytes (auto) 0.5T/MM3 Absolute Eosinophils (auto) 0.1T/MM3 Absolute Basophils (auto) 0.0T/MM3 Turbidity < 20 Sodium Level 145MEQ/L Potassium Level 4.2MEQ/L Chloride Level 106MEQ/L Carbon Dioxide Level 23MEQ/L Anion Gap 16MEQ/L Blood Urea Nitrogen 14.0MG/DL Creatinine 0.9MG/DL Glomerular Filtration Rate Calc 87 BUN/Creatinine Ratio 16RATIO Glucose Level 99MG/DL Calculated Osmolality 280MOSM/KG Calcium Level 9.4MG/DL Total Bilirubin 1.00MG/DL Icterus Index < 2 Aspartate Amino Transf (AST/SGOT) 30U/L Alanine Aminotransferase (ALT/SGPT) 40U/L Alkaline Phosphatase 91U/L Total Protein 8.0G/DL Albumin 4.2G/DL Globulin 3.8G/DL Albumin/Globulin Ratio 1.1RATIO Lipase 157U/L Chemistry Specimen Hemolysis < 15 Urine Collection Type Voided-not cc-midstr Urine Color Yellow Urine Turbidity Clear Urine pH 7.0 Urine Specific [place] 1.010 Urine Protein Negative Urine Glucose (UA) Negative Urine Ketones Trace Urine Blood 1+ Urine Nitrite Negative Urine Bilirubin Negative Urine Urobilinogen 0.2EU/DL Urine Leukocyte Esterase Negative Urine RBC 5-10/HPF Urine WBC 0-1/HPF Urine Squamous Epithelial Cells 0-5 Urine Bacteria Trace Urine Culture Indicated Cult not indicated Medications Current ED Medications Sodium Chloride (Normal Saline IV) 1,000 ml @ 1,000 mls/hr Q1H ONCE IV Last administered on 03/02/17 13:55; Start 03/02/17 at 13:42; Stop 03/02/17 at 14:41 ; Status DC Ondansetron HCl (Zofran) 4 mg O ONCE IV Last administered on 03/02/17 13:56; Start 03/02/17 at 13:45; Stop 03/02/17 at 13:48; Status DC Ketorolac Tromethamine (Toradol) 30 mg O ONCE IV Last administered on 13:58; Start 03/02/17 at 13:45; Stop 03/02/17 at 13:48; Status DC Iohexol 1 bottle 1 bottle STK-MED ONCE .ROUTE ; Start 03/02/17 at 14:15; Stop at 14:16; Status DC Sodium Chloride (NS) 100 ml @ As Directed STK-MED ONCE .ROUTE ; Start 03/02/17 at 14:15; Stop 03/02/17 at 14:16; Status DC Sodium Chloride (Iv Flush) 10 ml STK-MED ONCE .ROUTE ; Start 03/02/17 at 14:16; Stop 03/02/17 at 14:17; Status DC Progress Progress White count is appropriate, other labs are reasonable. Lipase is negative. CT abdomen and pelvis was negative. On further discussion with the patient he did quit drinking about 30 days ago after his pancreatitis attack. He is certainly at risk for recurrent pancreatitis. However he also has been on Marinol for 10 years for migraines, he very recently as in 3 days ago, stopped it because he had read that it caused loss of motivation. He has had his bowel cramping and discomfort and anxiety since that time. We discussed options, he would like to stay off the medication. We will give him Phenergan in the event that he becomes nauseated with the pancreatitis, avoid Zofran as it may stimulate migraines for him. Follow-up with his primary care physician. RYAN WHIPPLE MD Mar 02, 2017 13:42
[2017-03-02] MEDS ORDERED: KETOROLAC 30mg/ml INJECTION IV ONE (13:45)
[2017-03-02] MEDS ORDERED: ONDANSETRON 4mg/2ml INJECTION IV ONE (13:45)
[2017-03-02 13:59] LABS: BASOPHILS % (AUTO) 0.4 % (0-2); EOSINOPHILS # (AUTO) 0.1 T/MM3 (0-0.5); EOSINOPHILS % (AUTO) 1.8 % (0-4); HCT - HEMATOCRIT 50.2 % (41-53); HGB - HEMOGLOBIN 17.1 GM/DL (13.5-17.5); IMMATURE GRANULOCYTE # (AUTO) 0.01 T/MM3 (0.00-0.03); IMMATURE GRANULOCYTE % (AUTO) 0.1 % (0.0-0.5); LYMPHOCYTES # (AUTO) 1.2 T/MM3 (1-4.8); LYMPHOCYTES % (AUTO) 16.3 % (23-45); MEAN CORPUSCULAR HGB 30.9 UUG (26-34); MEAN CORPUSCULAR HGB CONC(MCHC 34.1 GM/DL (31-37); MEAN CORPUSCULAR VOLUME 90.6 UM3 (80-100); MEAN PLATELET VOLUME 10.4 UM3 (9.4-12.4); MONOCYTES # (AUTO) 0.5 T/MM3 (0-0.8); MONOCYTES % (AUTO) 6.2 % (0-9.0); NEUTROPHILS #(AUTO)-ABSOLUTE 5.5 T/MM3 (1.8-7.7); NEUTROPHILS % (AUTO) 75.2 % (33-66); RED BLOOD COUNT 5.54 M/MM3 (4.50-5.90); WBC - WHITE BLOOD COUNT 7.3 T/MM3 (4.5-11.0)
[2017-03-02 14:03] LABS: ALBUMIN 4.2 G/DL (3.5-5.0); ALBUMIN/GLOBULIN RATIO 1.1 RATIO (1.1-2.2); ALKALINE PHOSPHATASE 91 U/L (38-126); ALT (SGPT) 40 U/L (21-72); ANION GAP 16 MEQ/L (5-15); AST (SGOT) 30 U/L (17-59); BUN/CREATININE RATIO 16 RATIO (6-26); CALCIUM 9.4 MG/DL (8.4-10.2); CHLORIDE 106 MEQ/L (98-107); CO2 - CARBON DIOXIDE 23 MEQ/L (22-30); CREATININE 0.9 MG/DL (0.8-1.5); GLOMERULAR FILTRATION RATE 87; GLUCOSE 99 MG/DL (75-110); LIPASE 157 U/L (23-300); POTASSIUM 4.2 MEQ/L (3.6-5); SODIUM 145 MEQ/L (134-144)
[2017-03-02] MEDS ORDERED: NORMAL SALINE 100 ML ONE (14:15)
[2017-03-02] MEDS ORDERED: IOHEXOL 300 MG/ML 100ml INJECTION ONE (14:15)
[2017-03-02] MEDS ORDERED: SALINE FLUSH 10ml SYRINGE ONE (14:16)
[2017-03-02 15:16] LABS: BLOOD, URINE 1+ (NEGATIVE); COLOR,URINE YELLOW (YELLOW); LEUKOCYTE ESTERASE ,URINE NEGATIVE (NEGATIVE); NITRITE,URINE NEGATIVE (NEGATIVE); UROBILINOGEN,URINE 0.2 EU/DL (NORMAL)
[2017-03-02 15:26] LABS: WBC,URINE 0-1 /HPF (0-5)
[2017-03-02 15:27] LABS: BACTERIA,URINE TRACE (NEGATIVE); SQUAMOUS EPITHELIAL CELL,UR 0-5
--- NOTE | 2017-03-02 16:27 | NUR ---
PHYSICIAN DR WHIPPLE IN WITH PT
[2017-03-02] MEDS ORDERED: PROM25TA7 PO (16:48)
[2017-03-02 16:54] VITALS: BP 153/92; PULSE 60; RESP 15; TEMP 99.2; O2SAT 100
--- NOTE | 2017-03-02 20:32 | DI ---
Indication: ITS.REASON: abdominal pain, history of pancreatitis PROCEDURE: CT ABD/PELVIS W/CONTRAST ONLY: Encounter: Initial Comparison: CT abdomen and pelvis dated February 10, 2017 Technique: Axial CT images were performed through the abdomen and pelvis after the administration of intravenous contrast. Coronal and sagittal two-dimensional reformats. Automated Exposure Control and Iterative Reconstruction dose reducing techniques were utilized. Contrast: Omnipaque 300 100 mL Findings: The lung bases are grossly clear. Tiny cyst in the superior left and inferior right hepatic lobes. No bile duct dilatation or enhancing liver mass. The gallbladder is unremarkable. The spleen, pancreas and adrenal glands are within normal limits. Small bilateral low-attenuation renal foci, too small to definitively characterize. No abdominal or pelvic adenopathy. Bladder is normal. Prostate and rectum are unremarkable. No free fluid or evidence of a bowel obstruction. There is some fatty infiltration of the terminal ileum which is chronic. There is also some mild fatty infiltration of the wall of the second portion of the duodenum. Bone windows show no acute findings. Impression: 1. No acute disease process seen. 2. Areas of fatty infiltration in the wall of the second portion duodenum and terminal ileum. Findings are nonspecific but can be seen in chronic inflammatory conditions such as Crohn's. Recommend clinical correlation. There is a preliminary report by [employer]. .
== END 2017-03-02 16:54 | disposition home or self-care (01) ==
LOC: ED 12:56
DX: R10.12 Left upper quadrant pain (principal); R10.31 Right lower quadrant pain; R63.8 Other symptoms and signs concerning food and fluid intake; Z86.39 Personal history of other endocrine, nutritional and metabolic disease
CPT/HCPCS: 74177; 80053; 81001; 83690; 85025; 96361; 96374; 96375; 99284; J1885; J2405; J7030; J7050; Q9967